=== PATIENT | male | born 1990 | race Caucasian/White ===

== ENCOUNTER 2018-02-15 09:22 | Emergency (ER) | payer SELFPAY | END 2018-02-15 12:41 | disposition home or self-care (01) | PROVIDERS: Emergency Provider Emergency Medicine; PCP Physician Assistant; Visit Provider Emergency Medicine | DX: K52.9 Noninfective gastroenteritis and colitis, unspecified (principal) | CPT/HCPCS: 74177; 80053; 83690; 85025; 96361; 96374; 96375; 96376; 99058; 99284; C9113; J1885; J2060; J2405; Q9967 ==

== ENCOUNTER 2018-04-01 11:00 | Emergency (ER) | payer SELFPAY ==
[2018-04-01 11:31] VITALS: BP 151/94; PULSE 80; RESP 14; TEMP 37; O2SAT 99
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
[2018-04-01 12:35] VITALS: BP 126/89; PULSE 90; RESP 16; O2SAT 100
== END 2018-04-01 12:41 | disposition home or self-care (01) ==
PROVIDERS: Emergency Provider Emergency Medicine; Family Provider Physician Assistant; PCP Physician Assistant
DX: M25.511 Pain in right shoulder (principal)
CPT/HCPCS: 99282

== ENCOUNTER 2018-04-28 11:55 | Emergency (ER) | payer SELFPAY ==
[2018-04-28 11:59] VITALS: BP 146/101; PULSE 81; RESP 20; TEMP 36.8; O2SAT 100
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
[2018-04-28 13:11] VITALS: BP 127/88; PULSE 73; RESP 16; O2SAT 98
== END 2018-04-28 13:23 | disposition home or self-care (01) ==
PROVIDERS: Emergency Provider Internal Medicine; Family Provider Physician Assistant; PCP Physician Assistant
DX: M75.41 Impingement syndrome of right shoulder (principal)
CPT/HCPCS: 99283

== ENCOUNTER 2019-10-07 11:15 | Emergency (ER) | payer SELFPAY ==
[2019-10-07 11:48] VITALS: BP 136/90; PULSE 86; RESP 18; TEMP 36.9; O2SAT 98; BMI 20.2
[2019-10-07 12:39] VITALS: BP 145/97; PULSE 88; RESP 18; TEMP 36.7; O2SAT 98
--- NOTE | 2019-10-07 12:49 | DI.RAD.S_ITS ---
PROCEDURE: XR LUMBAR SPINE 2-3V INDICATIONS: pain hx ca TECHNIQUE: 2 views of the lumbar spine were acquired. COMPARISON: [facility], CR, XR LUMBAR SPINE 2 OR 3VW, 10/13/2015, 8:53. FINDINGS: Bones: 5 eje-fhm-nhptthk vertebrae are present. There is a minimal leftward curvature of the lumbar spine. There is minimal retrolisthesis of the lumbar spine at T12-L1, L1-L2, L2-L3, L3-L4, L4-5, and L5-S1. Findings appear similar to the prior study. There is mild facet arthropathy in the lower lumbar spine. No vertebral body compression fractures. No suspicious bony lesions. Soft tissues: Overlying bowel gas pattern is normal. No suspicious soft tissue calcifications. Multiple surgical clips are redemonstrated within the abdomen and pelvis. IMPRESSION: 1. Minimal multilevel retrolisthesis throughout the lumbar spine. 2. Mild facet arthropathy at L5-S1. 3. No discrete suspicious osseous lesions. Dictated by: Mathew Green M.D. on 10/07/2019 at 12:28 Approved by: Mathew Green M.D. on 10/07/2019 at 12:40
--- NOTE | 2019-10-07 12:49 | DI.RAD.S_ITS ---
PROCEDURE: XR THORACIC SPINE 2V INDICATIONS: pain hx ca TECHNIQUE: 3 views of the thoracic spine were acquired. COMPARISON: [facility], CT, THORAX WITHOUT CONTRAST, 04/14/2016, 11:47. FINDINGS: Bones: No fractures or subluxation. There is a minimal rightward curvature of the upper thoracic spine. No suspicious bony lesions. 12 pairs of ribs are noted, and appear intact where visualized. Soft tissues: No paravertebral stripe thickening. IMPRESSION: 1. No definite fracture or subluxation. Dictated by: Mathew Green M.D. on 10/07/2019 at 12:40 Approved by: Mathew Green M.D. on 10/07/2019 at 12:42
[2019-10-07 12:58] LABS: Add Manual Diff / Slide Review NO; Basophils Absolute Auto 0 /uL (0-100); Basophils Percent Auto 0.4 % (0-2); Eosinophils Absolute Auto 100 /uL (0-450); Eosinophils Percent Auto 0.8 % (2-4); Hematocrit 45.1 % (41-53); Hemoglobin 15.7 g/dL (13.5-17.5); Lymphocytes Absolute Auto 1900 /uL (1100-4500); Lymphocytes Percent Auto 26.2 % (25-40); Mean Corpuscular HGB Conc 34.8 % (30-36); Mean Corpuscular Volume 86.4 fL (80-100); Monocytes Absolute Auto 300 /uL (0-900); Monocytes Percent Auto 4.7 % (3-14); Neutrophils Absolute Auto 4800 /uL (1500-7000); Neutrophils Percent Auto 67.9 % (50-75); Platelet Count 246 X10^3/uL (150-400); Red Blood Cell Count 5.22 X10^6/uL (4.5-5.9); Red Cell Distribution Width 13.3 % (11.6-14.8); White Blood Cell Count 7.1 X10^3/uL (4.5-11.0)
[2019-10-07] MEDS: ONDANSETRON 4 MG/2 ML INJ IV ×2 (13:06→14:13)
[2019-10-07] MEDS: SODIUM CHLORIDE 0.9% 1,000 ML 1000 ML IV (13:06)
[2019-10-07 13:11] LABS: Prothrombin Time 12.1 SECONDS (10.1-12.7)
[2019-10-07 13:14] LABS: PTT Partial Thromboplastin Tim 34 SECONDS (26.4-36.2)
[2019-10-07 13:17] LABS: Alanine Aminotransferase 38 IU/L (<50); Albumin 4.9 g/dL (3.5-5.0); Albumin Globulin Ratio 1.5 (1.0-2.8); Alkaline Phosphatase 73 U/L (38-126); Amylase 73 U/L (30-110); Aspartate Aminotransferase 38 IU/L (17-59); BUN Creatinine Ratio 7.5 (6-22); Bilirubin Total 0.8 mg/dL (0.2-1.3); Blood Urea Nitrogen 6 mg/dL (9-20); Calcium 9.5 mg/dL (8.4-10.2); Carbon Dioxide 26 mmol/L (22-32); Chloride 102 mmol/L (98-107); Estimated Glomerular Filt Rate > 60.0 mL/min (>60); Globulin 3.2 g/dL (1.7-4.1); Glucose 98 mg/dL (70-100); HEMOLYSIS < 15 (0-50); Lipase 131 U/L (23-300); Potassium 3.4 mmol/L (3.4-5.1); Sodium 141 mmol/L (137-145); Total Protein 8.1 g/dL (6.3-8.2)
[2019-10-07] MEDS: ACETAMINOPHEN 325 MG TABLET 975 MG PO (14:12)
[2019-10-07] MEDS: CYCLOBENZAPRINE 10 MG TABLET PO (14:12)
[2019-10-07] MEDS: IBUPROFEN 400 MG TABLET 800 MG PO (14:13)
[2019-10-07 14:27] VITALS: BP 125/73; PULSE 54; O2SAT 99
[2019-10-07] MEDS: hydrOXYzine pamoate 25 MG CAPSULE 50 MG PO (15:04)
[2019-10-07 15:30] VITALS: BP 116/68; PULSE 82; RESP 16; O2SAT 100
[2019-10-07 16:25] VITALS: BP 129/83; PULSE 64; O2SAT 98
--- NOTE | 2019-10-07 17:17 | CM.SWNOTE ---
professional services specialist Assessment: EMR reviewed: Patient is a 28 yr old male who came into the ED for joint and muscle pain that has been happening for over a month. Patient stated he has also lost over 35 lbs in less then a month and has not changed any eating habits or physical activity. Patient has a HX of prostate cancer but has been in remission for the last few years. Patient stated he did not do the required Follow up with [facility] after he went into remission. CM/RN was asked to meet with the patient by MIRNA Meneses to help with resources for follow up with oncology as well as to discuss patients anxiety. CM/RN met with patient at the bedside along with patients Sarah who is 7 months and explained CM/RN role. Patient was alert and oriented x3 during CM/RN visit. Patient states he is really concerned that his cancer has returned and [facility] has stated that the patient needs a new referral to be seen there to get scans done. Patient isn't able to see his PCP Dr. Johnson until November 01 2019. Patient is a [employer] and is not set up with [facility] [employer] or [facility]. CM/RN gave patient Oncology RYAN Locke's phone number [phone] to see if maybe she will be able to give patient a few more resources then CM/RN is able. CM/RN Did give patient information on applying for [place] and [place] health care through [employer] website. Patient stated understanding and appreciation for the resources. Cm/RN talked with patient at length about how his anxiety was doing? Patient stated he is just tired of being in pain and not being able to sleep. Patient stated his pain is getting worse every day and because of that his anxiety increases. Patient stated he use to take sertraline 150mg daily but stopped taking it about a year ago. Patient stated he didn't feel he needed it any more. Patient doesn't currently see anyone for anxiety or depression. CM/RN gave patient information about [facility] as well as their Crisis intervention line information and [facility] Crisis line information. Patient stated I have been struggling with PTSD from my time in the and stated he feels like it is just getting worse with the fears of possibly having cancer again with a son at home and a new baby on the way is just horrifying. P: CM/RN gave patient resources for Crisis line, [facility], [place] ebenifits to help with applying for [place] as well as [place] health benifits. CM/RN also gave patient Oncology MARILY Locke's phone number to talk with her about possible resources to help him with Cancer concerns. Tonya Diaz RN SHOW DOG TRAINER - Contract Implementation Analyst Assessment SHOW DOG TRAINER - Contract Implementation Analyst Assessment Start: 10/07/19 17:04 Freq: Status: Discharge Protocol: Document 10/07/19 17:04 HS (Rec: 10/07/19 17:16 HS [id number]) SHOW DOG TRAINER/Contract Implementation Analyst Assessment Time Spent with Patient Start date 10/07/19 Visit Start Time 15:30 End date 10/07/19 Visit End Time 17:10 Total time Care Management spent on 130min patient visit-in minutes Mental Health Screening Include Onset, Duration, Intensity Presenting Problem patient presented to the ED for joint and muscle pain as well as weight loss. Patient previously has had prostate cancer that has been in remission. Patient didn't do follow up care with [facility]. Patient is now concerned that his cancer has returned. Precipitating Event(s) Joint pain and weight loss Current Behavioral Health Provider(s) none Include Facility, Provider, Ph. # Psychiatric Hospitalizations (date(s)/ none location) Support System(s) Patient has a who is seven months and also has an 8 yr old son. 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
--- NOTE | 2019-10-07 21:13 | ED_ITS ---
HPI - Weakness <Michelle Meneses, BOTTOM STAINER-BC - Last Filed: 10/07/19 21:20> General Chief complaint: Weakness Stated complaint: bones hurting, weight loss, remission from cancer Time Seen by Provider: 10/07/19 11:27 Source: patient Mode of arrival: Ambulatory Limitations: no limitations History of Present Illness HPI Narrative: The patient is a 28-year-old male nonsmoker with history of testicular cancer who presents with a chief complaint of bone pain, weight loss in general malaise for the past several months. He states that he is having muscle aches and that his bones hurt. He states that this has been going on for at least 3 months and he has not followed up with primary care provider or his hematology oncology provider. He received treatment as [facility] states he is in remission for testicular cancer, though has not had his follow-up PET scans or evaluation. He states that since his is expecting a child in 2 months any or any has a toddler at home he is under increased stress. He states he has lost 30 lb, but is not sure over what duration. He states that he is having back pain. He states he has been using Tylenol and Motrin. He states that he was not able to sleep last night which is what made him come to the emergency department today. He states he has a scheduled appointment with PCP upcoming, but can no longer ?cope with life.He denies any thoughts of hurting himself or anybody else. He states that his anxiety is ?at a 10. Related Data Home Medications Medication Instructions Recorded Confirmed sertraline 150 mg PO QDAY #0 07/27/17 04/28/18 dexamethasone 1 dose PO DIRECTED 04/28/18 04/28/18 ibuprofen 1 - 3 tab PO PRN PRN 04/28/18 04/28/18 Previous Rx's Medication Instructions Recorded cyclobenzaprine 10 mg PO Q8H #20 tab 04/28/18 tramadol 50 mg PO Q6H PRN #10 tab 04/28/18 cyclobenzaprine 10 mg PO TID PRN #20 tab 10/07/19 hydroxyzine pamoate [Vistaril] 50 mg PO TID PRN #20 cap 10/07/19 Allergies Allergy/AdvReac Type Severity Reaction Status Date / Time barium sulfate Allergy Severe Gastrointestinal Verified 10/07/19 11:48 [BARIUM SULFATE] Upset levofloxacin [From LEVAQUIN] Allergy Unknown TENDONITIS Verified 10/07/19 11:48 indomethacin [INDOMETHACIN] AdvReac Severe MIGRAINE Verified 10/07/19 11:48 Review of Systems <TRIPP Cedeño - Last Filed: 10/07/19 21:20> Review of Systems Narrative: GENERAL: See HPI HEENT: Denies sinus pain, ear pain, sore throat, difficulty swallowing, dizziness. RESPIRATORY: Denies dyspnea, cough, wheezing, hemoptysis, sputum. CARDIOVASCULAR: Denies chest pain, palpitations, orthopnea, edema, GASTROINTESTINAL: Denies nausea, vomiting, abdominal pain, diarrhea, constipation, melena. : Denies dysuria, frequency, incontinence, hematuria, urinary retention. MUSCULOSKELETAL: See HPI SKIN: Denies rash, skin lesions, or other NEUROLOGIC: Denies weakness, headache, numbness, change in speech, confusion, seizures, incoordination. PSYCHIATRIC: See HPI 12 point review of systems is negative except for those stated above Patient History <TRIPP Cedeño - Last Filed: 10/07/19 21:20> Surgical History (Updated 02/28/18 @ 06:07 by Conversion Provider) Status post orchiectomy (08/22/13) Family History (Updated 03/16/16 @ 00:00 by Conversion Provider) Mother Hypertension Grandmother Age: 77 Kidney failure Social History Smoking Status: Never smoker Smoking Status: Never smoker alcohol intake frequency: 0-2 drinks per day Substance Use Type: does not use Exam <TRIPP Cedeño - Last Filed: 10/07/19 21:20> Narrative Exam Narrative: GENERAL: Thin male appears anxious HEAD: Atraumatic. Normocephalic. No temporal or scalp tenderness. EYES: Pupils equal round and reactive. Extraocular motions intact. No scleral icterus. No injection or drainage. ENT: Nose without bleeding, purulent drainage or septal hematoma. Throat without erythema, tonsillar hypertrophy or exudate. Uvula midline. Airway patent. NECK: Trachea midline. No JVD or lymphadenopathy. Supple, nontender, no meningeal signs. CARDIOVASCULAR: Regular rate and rhythm without murmurs, gallops, or rubs. RESPIRATORY: Clear to auscultation. Breath sounds equal bilaterally. No wheezes, rales, or rhonchi. No cough. No increased respiratory effort. No accessory muscle use. GASTROINTESTINAL: Abdomen soft, non-tender, nondistended. No hepato- splenomegaly, or palpable masses. No guarding. Active bowel sounds all 4 quadrants EXTREMITIES: No clubbing, cyanosis, or edema. No joint tenderness, effusion, or edema noted. BACK: Diffuse tenderness to thoracic and lumbar spine palpation with no palpable step-offs or deformities. No flank tenderness. NEURO: AOx3. Tangential. Pressured speech at times. SKIN: No rash or erythema on visible skin Initial Vital Signs Initial Vital Signs: Vital Signs Temperature 98.4 F 10/07/19 11:48 Pulse Rate 86 10/07/19 11:48 Respiratory Rate 18 10/07/19 11:48 Blood Pressure 136/90 10/07/19 11:48 Pulse Oximetry 98 10/07/19 11:48 <Ni Senior MD - Last Filed: 10/09/19 11:57> Initial Vital Signs Initial Vital Signs: Vital Signs Temperature 98.4 F 10/07/19 11:48 Pulse Rate 86 10/07/19 11:48 Respiratory Rate 18 10/07/19 11:48 Blood Pressure 136/90 10/07/19 11:48 Pulse Oximetry 98 10/07/19 11:48 Course <MIRNA Cedeño - Last Filed: 10/07/19 21:20> Orders Ordered: Discontinued Medications Acetaminophen (Tylenol) 975 mg PO NOW ONE Stop: 10/07/19 13:43 Last Admin: 10/07/19 14:12 Dose: 975 mg Documented by: J LUIS Cyclobenzaprine HCl (Flexeril) 10 mg PO NOW ONE Stop: 10/07/19 13:43 Last Admin: 10/07/19 14:12 Dose: 10 mg Documented by: J LUIS Hydroxyzine Pamoate (Vistaril) 50 mg PO NOW ONE Stop: 10/07/19 14:50 Last Admin: 10/07/19 15:04 Dose: 50 mg Documented by: J LUIS Sodium Chloride (Normal Saline 0.9%) 1,000 mls @ 1,000 mls/hr IV BOLUS ONE Stop: 10/07/19 13:48 Last Infusion: 10/07/19 14:15 Dose: 0 mls/hr Documented by: J LUIS Admin: 10/07/19 13:06 Dose: 1,000 mls/hr Documented by: JESSICA Ibuprofen (Advil) 800 mg PO NOW ONE Stop: 10/07/19 13:43 Last Admin: 10/07/19 14:13 Dose: 800 mg Documented by: J LUIS Ondansetron HCl (Zofran) 4 mg IV NOW ONE Stop: 10/07/19 12:50 Last Admin: 10/07/19 13:06 Dose: 4 mg Documented by: JESSICA Ondansetron HCl (Zofran) 4 mg IV NOW ONE Stop: 10/07/19 13:43 Last Admin: 10/07/19 14:13 Dose: 4 mg Documented by: J LUIS Vital Signs Vital signs: Vital Signs - 8 hr 10/07/19 14:27 10/07/19 15:30 10/07/19 16:25 Pulse Rate 54 L 82 64 Respiratory Rate 16 Blood Pressure [Right Arm] 125/73 116/68 129/83 Pulse Oximetry 99 100 98 <Ni Senior MD - Last Filed: 10/09/19 11:57> Orders Ordered: Discontinued Medications Acetaminophen (Tylenol) 975 mg PO NOW ONE Stop: 10/07/19 13:43 Last Admin: 10/07/19 14:12 Dose: 975 mg Documented by: J LUIS Cyclobenzaprine HCl (Flexeril) 10 mg PO NOW ONE Stop: 10/07/19 13:43 Last Admin: 10/07/19 14:12 Dose: 10 mg Documented by: J LUIS Hydroxyzine Pamoate (Vistaril) 50 mg PO NOW ONE Stop: 10/07/19 14:50 Last Admin: 10/07/19 15:04 Dose: 50 mg Documented by: J LUIS Sodium Chloride (Normal Saline 0.9%) 1,000 mls @ 1,000 mls/hr IV BOLUS ONE Stop: 10/07/19 13:48 Last Infusion: 10/07/19 14:15 Dose: 0 mls/hr Documented by: J LUIS Admin: 10/07/19 13:06 Dose: 1,000 mls/hr Documented by: JESSICA Ibuprofen (Advil) 800 mg PO NOW ONE Stop: 10/07/19 13:43 Last Admin: 10/07/19 14:13 Dose: 800 mg Documented by: J LUIS Ondansetron HCl (Zofran) 4 mg IV NOW ONE Stop: 10/07/19 12:50 Last Admin: 10/07/19 13:06 Dose: 4 mg Documented by: JESSICA Ondansetron HCl (Zofran) 4 mg IV NOW ONE Stop: 10/07/19 13:43 Last Admin: 10/07/19 14:13 Dose: 4 mg Documented by: J LUIS Vital Signs Vital signs: Vital Signs - 8 hr 10/07/19 14:27 10/07/19 15:30 10/07/19 16:25 Pulse Rate 54 L 82 64 Respiratory Rate 16 Blood Pressure [Right Arm] 125/73 116/68 129/83 Pulse Oximetry 99 100 98 MDM - Weakness <MIRNA Cedeño - Last Filed: 10/07/19 21:20> Lab Data Result diagrams: 10/07/19 12:50 10/07/19 12:50 Labs: Lab Results 10/07/19 10/07/19 10/07/19 Range/Units 12:50 12:50 12:50 WBC 7.1 (4.5-11.0) X10^3/uL RBC 5.22 (4.5-5.9) X10^6/uL Hgb 15.7 (13.5-17.5) g/dL Hct 45.1 (41-53) % MCV 86.4 (80-100) fL MCH 30.0 (26-34) PG MCHC 34.8 (30-36) % RDW 13.3 (11.6-14.8) % Plt Count 246 (150-400) X10^3/uL Neut % (Auto) 67.9 (50-75) % Lymph % (Auto) 26.2 (25-40) % [place] % (Auto) 4.7 (3-14) % Eos % (Auto) 0.8 L (2-4) % Baso % (Auto) 0.4 (0-2) % Neut # (Auto) 4800 (9223-2501) /uL Lymph # (Auto) 1900 (1188-1222) /uL [place] # (Auto) 300 (0-900) /uL Eos # (Auto) 100 (0-450) /uL Baso # (Auto) 0 (0-100) /uL PT 12.1 (10.1-12.7) SECONDS INR 1.0 (0.9-1.3) APTT 34 (26.4-36.2) SECONDS Sodium 141 (137-145) mmol/L Potassium 3.4 (3.4-5.1) mmol/L Chloride 102 (98-107) mmol/L Carbon Dioxide 26 (22-32) mmol/L BUN 6 L (9-20) mg/dL Creatinine 0.80 (0.66-1.25) mg/dL Estimated GFR > 60.0 (>60) mL/min BUN/Creatinine Ratio 7.5 (6-22) Glucose 98 (70-100) mg/dL Calcium 9.5 (8.4-10.2) mg/dL Magnesium 2.0 (1.6-2.3) mg/dL Total Bilirubin 0.8 (0.2-1.3) mg/dL AST 38 (17-59) IU/L ALT 38 (<50) IU/L Alkaline Phosphatase 73 (38-126) U/L Total Protein 8.1 (6.3-8.2) g/dL Albumin 4.9 (3.5-5.0) g/dL Globulin 3.2 (1.7-4.1) g/dL Albumin/Globulin Ratio 1.5 (1.0-2.8) Amylase 73 (30-110) U/L Lipase 131 (23-300) U/L Urine Dip Bedside Urine Glucose 100 mg/dl Bedside Urine Bilirubin + 1 Bedside Urine Ketone ++ 40 Urine Specific [place] 1.015 Bedside Urine Occult Blood - Negative Bedside Urine pH 6.5 Bedside Urine Protein + 30 Bedside Urine Urobilinogen 1+ 2mg Bedside Urine Nitrite - Negative Bedside Urine Leukocytes +/- 15 Esterase Imaging Data Thoracic spine x-ray: Radiologist's impression: [address] [address] XRay Report Signed Patient: Jarek Hernandez JMR#: [id number] : 1990Acct:[id number] Age/Sex: 28 / MDate of Service: 10/07/19 Loc: ED Accession Number: [id number] Procedure: XR thoracic spine 2V Ordering Provider: Broome,Michelle BOTTOM STAINER-BC PROCEDURE: XR THORACIC SPINE 2V INDICATIONS: pain hx ca TECHNIQUE: 3 views of the thoracic spine were acquired. COMPARISON: [facility], CT, THORAX WITHOUT CONTRAST, 04/14/2016, 11:47. FINDINGS: Bones: No fractures or subluxation. There is a minimal rightward curvature of the upper thoracic spine. No suspicious bony lesions. 12 pairs of ribs are noted, and appear intact where visualized. Soft tissues: No paravertebral stripe thickening. IMPRESSION: 1. No definite fracture or subluxation. Dictated by: Mathew Green M.D. on 10/07/2019 at 12:40 Approved by: Mathew Green M.D. on 10/07/2019 at 12:42 Lumbar spine x-ray: Radiologist's impression: [address] [address] XRay Report Signed Patient: Jarek Hernandez JMR#: [id number] : 1990Acct:[id number] Age/Sex: 28 / MDate of Service: 10/07/19 Loc: ED Accession Number: [id number] Procedure: XR lumbar spine 2-3V Ordering Provider: Michelle Meneses BOTTOM STAINER-BC PROCEDURE: XR LUMBAR SPINE 2-3V INDICATIONS: pain hx ca TECHNIQUE: 2 views of the lumbar spine were acquired. COMPARISON: [facility], , XR LUMBAR SPINE 2 OR 3VW, 10/13/2015, 8:53. FINDINGS: Bones: 5 [id number] vertebrae are present. There is a minimal leftward curvature of the lumbar spine. There is minimal retrolisthesis of the lumbar spine at T12-L1, L1-L2, L2-L3, L3-L4, L4-5, and L5-S1. Findings appear similar to the prior study. There is mild facet arthropathy in the lower lumbar spine. No vertebral body compression fractures. No suspicious bony lesions. Soft tissues: Overlying bowel gas pattern is normal. No suspicious soft tissue calcifications. Multiple surgical clips are redemonstrated within the abdomen and pelvis. IMPRESSION: 1. Minimal multilevel retrolisthesis throughout the lumbar spine. 2. Mild facet arthropathy at L5-S1. 3. No discrete suspicious osseous lesions. Dictated by: Mathew Green M.D. on 10/07/2019 at 12:28 Approved by: Mathew Green M.D. on 10/07/2019 at 12:40 MDM Narrative Medical decision making narrative: The patient is a 28-year-old male with history of testicular cancer presents with a chief complaint of multiple complaints over the past several months. It is difficult to ascertain an appropriate history, especially the timeline of events. Patient states that he started having weight loss issues, muscle aches and bone pain for the past several months. I did do basic lab work, obtain imaging of his back which came back with no acute findings. The patient responded well to Flexeril and Vistaril in the emergency department. Given his complains about psychosocial issues, his anxiety being added 10 etcetera I did ask our case management nurse Tonya to come see and evaluate the patient. I was especially concerned given his history and lack of follow-up. She was able to give him several contact numbers and help arrange follow-up especially given his scans. The patient did refer to PET scans, tumor markers etc.. A discussed that I could not order those in the emergency department and suggested that he follow-up with his previous oncology provider to see if they could order them at this location as we would not have to travel to [place]. The patient did request tramadol and other pain medication while in the emergency department and that I start him on benzodiazepines for anxiety. I discussed that I was not comfortable doing that in the emergency department and that he would need to be evaluated by an outpa tient provider for these. I discussed that these medications need to be monitored, that I could not prescribe tramadol or other narcotics without a clear indication. He states he wants to use them to sleep. Encouraged uses Vistaril. The patient become visibly agitated with aggressive speech at times. Nursing and Case Management had copious discussions with the patient. I discussed at length that he could come back to emergency department for any acute concerns. Patient has no questions or concerns upon discharge and states understanding of return precautions as well as follow-up care. <Ni Senior MD - Last Filed: 10/09/19 11:57> Lab Data Labs: Lab Results 10/07/19 10/07/19 10/07/19 Range/Units 12:50 12:50 12:50 WBC 7.1 (4.5-11.0) X10^3/uL RBC 5.22 (4.5-5.9) X10^6/uL Hgb 15.7 (13.5-17.5) g/dL Hct 45.1 (41-53) % MCV 86.4 (80-100) fL MCH 30.0 (26-34) PG MCHC 34.8 (30-36) % RDW 13.3 (11.6-14.8) % Plt Count 246 (150-400) X10^3/uL Neut % (Auto) 67.9 (50-75) % Lymph % (Auto) 26.2 (25-40) % [place] % (Auto) 4.7 (3-14) % Eos % (Auto) 0.8 L (2-4) % Baso % (Auto) 0.4 (0-2) % Neut # (Auto) 4800 (0827-4142) /uL Lymph # (Auto) 1900 (3110-3189) /uL [place] # (Auto) 300 (0-900) /uL Eos # (Auto) 100 (0-450) /uL Baso # (Auto) 0 (0-100) /uL PT 12.1 (10.1-12.7) SECONDS INR 1.0 (0.9-1.3) APTT 34 (26.4-36.2) SECONDS Sodium 141 (137-145) mmol/L Potassium 3.4 (3.4-5.1) mmol/L Chloride 102 (98-107) mmol/L Carbon Dioxide 26 (22-32) mmol/L BUN 6 L (9-20) mg/dL Creatinine 0.80 (0.66-1.25) mg/dL Estimated GFR > 60.0 (>60) mL/min BUN/Creatinine Ratio 7.5 (6-22) Glucose 98 (70-100) mg/dL Calcium 9.5 (8.4-10.2) mg/dL Magnesium 2.0 (1.6-2.3) mg/dL Total Bilirubin 0.8 (0.2-1.3) mg/dL AST 38 (17-59) IU/L ALT 38 (<50) IU/L Alkaline Phosphatase 73 (38-126) U/L Total Protein 8.1 (6.3-8.2) g/dL Albumin 4.9 (3.5-5.0) g/dL Globulin 3.2 (1.7-4.1) g/dL Albumin/Globulin Ratio 1.5 (1.0-2.8) Amylase 73 (30-110) U/L Lipase 131 (23-300) U/L Urine Dip Bedside Urine Glucose 100 mg/dl Bedside Urine Bilirubin + 1 Bedside Urine Ketone ++ 40 Urine Specific [place] 1.015 Bedside Urine Occult Blood - Negative Bedside Urine pH 6.5 Bedside Urine Protein + 30 Bedside Urine Urobilinogen 1+ 2mg Bedside Urine Nitrite - Negative Bedside Urine Leukocytes +/- 15 Esterase Discharge Plan Departure Patient Disposition: Home Clinical Impression: Muscle spasm, Anxiety Discharge Date/Time: 10/07/19 17:08 Instructions: Anxiety Disorders, Anxiety and Panic Attacks (Alternative Therapy), DI for Anxiety -- Adult, DI for Muscle Strain, DI for Muscle Spasm Activity Restrictions/Additional Instructions: Please follow-up with primary care provider as well as the resources provided to you by Tonya heredia case management nurse. It is important that you follow-up with your hematology/oncology providers for further evaluation and the scans that you are overdue for. Otherwise today, your imaging and lab work looked good. However this does not replace further evaluation or imaging. In the meantime, I have given you prescriptions for a muscle relaxer as well as an anxiety medication that you can take as needed. Please be aware that they can be sedating. Do not combine with alcohol or any other sedating agents. Please follow-up with primary care provider come back to the emergency department for any acute concerns such as chest pain, shortness of breath concern of heart attack or stroke etcetera Prescriptions: New cyclobenzaprine 10 mg tablet 10 mg PO TID PRN (Reason: muscle spasm) Qty: 20 RF: 0 hydroxyzine pamoate [Vistaril] 50 mg capsule 50 mg PO TID PRN (Reason: anxiety) Qty: 20 RF: 0 No Action sertraline 50 MG tablet 150 mg PO QDAY Qty: 0 RF: 0 dexamethasone 4 mg tablet 1 dose PO DIRECTED RF: 0 ibuprofen 200 mg Tablet 1 - 3 tab PO PRN PRN (Reason: Pain, Moderate) RF: 0 cyclobenzaprine 10 mg tablet 10 mg PO Q8H Qty: 20 RF: 0 tramadol 50 mg tablet 50 mg PO Q6H PRN (Reason: pain) Qty: 10 RF: 0 Referrals: Cheikh Garza DO [Primary Care Provider] -
--- NOTE | 2019-10-11 12:40 | ONC.MSW ---
Description: New Referral/Navigation Coordination Activity: Dr. Garza called this ADOBE ARCHITECT and was inquiring why pt has not yet been scheduled, and that he thought the referral had been forwarded by [facility]. ADOBE ARCHITECT called Jessica in referrals at [facility], she was unaware of the referral, and went online with [place] to pre-auth, only to discover that pt is not going to be eligible for this insurance until 10/31/19 ([place], [place]) He is currently self-pay, and reportedly has an outstanding balance with of $14,00, never made a payment in the last 3-years, and is chronically going through the ER for all of his care (uninsured). Kamila Luna in [employer] was the source of confirming the hx of his lack of payment and collections, and shared that his communication w/[facility] has had ongoing indiscrepancies re: coverage at various times. ADOBE ARCHITECT did go down to the [facility] lobby and speak to pt prior to finding out the above details of his account. He demanded to be seen in Oncology aneta, and states that Dr. Garza told me I only had a few weeks to get seen. He then went on to say that if we couldn't get him in, that he would show up at this primary care doctors office and demand a PET scan and blood tests that day, or go to several other specialists and piece-meal together what I need to find out. ADOBE ARCHITECT explained that procedures need to be pre-authorized, and that you can't just show up and demand a PET scan. ADOBE ARCHITECT did assure him that we would help by calling his insurance and determine if there are options for him to get September coverage, and that ADOBE ARCHITECT would call him back today with next steps. ADOBE ARCHITECT also explained that if it's his intent to come to Oncology, then to please not plan on going from provider to provider to try and get things he thinks he needs, but to allow us to order things properly in accordance with the Oncologist's recommendations. ADOBE ARCHITECT called pt's insurance and determined that he may have the option of calling [employer] and paying for an additional month (September) in order to get insurance coverage now, provided the phone number and explanation on his voicemail, and requested a return call from him to update this ADOBE ARCHITECT on what he finds out. Called Ashli Urrutia and updated her re: pt's erratic behavior (calling and speaking to multiple people in 2-clinics) and re: his lack of insurance and outstanding balance with [facility]. Left message for Dr. Garza and/or his nurse to call this ADOBE ARCHITECT to update re: situation and plan.
--- NOTE | 2019-10-15 13:52 | ONC.MSW ---
Description: T/C Navigation Activity: Called pt a second time, left message again inquiring about setting up an initial Oncology appt time. Requested return call to confirm.
--- NOTE | 2019-10-17 12:56 | ONC.MSW ---
Description: T/C from patient re: scheduling new consult appt. Activity: Pt called COUNCILPERSON and confirmed that he would like to move forward with getting the next urgent appt. available as close to 10/31/19 as possible. COUNCILPERSON assured him that we would work on this and call him back today with a time/date. Forwarded to scheduling, who will notify him of his new pt appt for 11/01/19 at 2:00pm.
== END 2019-10-07 17:08 | disposition home or self-care (01) ==
PROVIDERS: Emergency Provider Nurse Practitioner Family; PCP Family Medicine
DX: M62.838 Other muscle spasm (principal); F41.9 Anxiety disorder, unspecified
CPT/HCPCS: 36415; 72070; 72100; 80053; 81003; 82150; 83690; 83735; 85025; 85610; 85730; 96361; 96374; 96376; 99283; 99284; J2405

== ENCOUNTER → 2019-11-02 10:59 | Outpatient (CLI) | payer OTHER, SELFPAY ==
[2019-11-02 12:00] LABS: Lactate Dehydrogenase 420 U/L (313-618)
[2019-11-02 12:19] LABS: HCG Quantitative /Beta subunit < 2.39 mIU/mL (-2.40)
== END ==
PROVIDERS: PCP Family Medicine; Visit Provider Family Medicine
DX: R63.4 Abnormal weight loss (principal); Z85.47 Personal history of malignant neoplasm of testis
CPT/HCPCS: 36415; 82105; 83615; 84702

== ENCOUNTER → 2019-11-05 14:16 | Outpatient (CLI) | payer OTHER, SELFPAY ==
--- NOTE | 2019-11-05 14:19 | DI.CT.S_ITS ---
PROCEDURE: CT CHEST ABD PEL W CON INDICATIONS: SUDDEN WEIGHT LOSS, HX OF TESTICULAR CANCER TECHNIQUE: After the administration of oral and intravenous contrast, 5 mm thick sections acquired from the lung apices to the symphysis. 5 mm coronal and sagittal reformats were performed, with additional 7 mm coronal MIP reformats through the lungs. For radiation dose reduction, the following was used: automated exposure control, adjustment of mA and/or kV according to patient size. COMPARISON: [facility], CT, ABDOMEN/PELVIS WITH CONTRAST, 02/15/2018, 10:14. FINDINGS: Image quality: Excellent. CHEST: Lungs and pleura: No acute airspace opacities. No pleural effusions or pneumothorax. Central and peripheral airways appear patent and normal in caliber. Mediastinum: Heart size is normal. No pericardial effusion. No mediastinal or hilar adenopathy by size criteria. Thoracic aorta and central pulmonary arteries are normal in size. Esophagus is normal in caliber. No hiatal hernia. Chest wall: No axillary or supraclavicular adenopathy by size criteria. Thyroid gland is unremarkable. ABDOMEN: Solid organs: Liver is normal in size and enhancement. Gallbladder is normal in CT appearance. Biliary system is non dilated. Pancreas enhances normally. Spleen is normal in size and enhancement. No adrenal nodules. Kidneys demonstrate normal size and enhancement, without hydronephrosis. Peritoneum and bowel: Scant colonic diverticulosis. No acute inflammation. Bowel loops demonstrate normal wall thickness and caliber. No free fluid or air. Nodes and vessels: No retroperitoneal or mesenteric adenopathy by size criteria. Numerous periaortic retroperitoneal surgical clips. No suspicious mass lesions along the retroperitoneum. Aorta and inferior vena cava are normal in size. Miscellaneous: No ventral hernias. There are postoperative changes involving the midline ventral abdominal wall. PELVIS: Genitourinary: Bladder wall thickness is normal. Postoperative changes from previous orchiectomy. Miscellaneous: No inguinal hernias or adenopathy. No pelvic adenopathy. Bones: No suspicious bony lesions. No vertebral body compression fractures. IMPRESSION: CT chest, abdomen, and pelvis without acute abnormality or evidence for metastatic disease. Redemonstration of incidental colonic diverticulosis without acute inflammation. Dictated by: Salazar Gonzales M.D. on 11/05/2019 at 17:29 Approved by: Salazar Gonzales M.D. on 11/05/2019 at 17:40
== END ==
PROVIDERS: Family Provider Internal Medicine Hematology & Oncology; PCP Family Medicine; Visit Provider Family Medicine
DX: R63.4 Abnormal weight loss (principal); Z85.47 Personal history of malignant neoplasm of testis
CPT/HCPCS: 71260; 74177

== ENCOUNTER → 2020-02-07 10:08 | Outpatient (CLI) | payer OTHER, SELFPAY ==
--- NOTE | 2020-02-07 11:04 | DI.CT.S_ITS ---
PROCEDURE: CT CHEST ABD PEL W CON INDICATIONS: Weight loss, history of testicular cancer TECHNIQUE: After the administration of oral and intravenous contrast, 5 mm thick sections acquired from the lung apices to the symphysis. 5 mm coronal and sagittal reformats were performed, with additional 7 mm coronal MIP reformats through the lungs. For radiation dose reduction, the following was used: automated exposure control, adjustment of mA and/or kV according to patient size. COMPARISON: [facility], CT, ABDOMEN/PELVIS WITH CONTRAST, 05/15/2016, 17:06. [facility], CT, ABDOMEN/PELVIS WITH CONTRAST, 04/04/2017, 19:51. [facility], CT, ABDOMEN/PELVIS WITH CONTRAST, 02/15/2018, 10:14. [facility], CT, CT CHEST ABD PEL W CON, 11/05/2019, 15:34. FINDINGS: Image quality: Excellent. CHEST: Lungs and pleura: Small subtle groundglass opacities are present in the right upper lobe, not seen on the last exam. No pleural effusions or pneumothorax. Central and peripheral airways appear patent and normal in caliber. Mediastinum: Heart size is normal. No pericardial effusion. No mediastinal or hilar adenopathy by size criteria. Thoracic aorta and central pulmonary arteries are normal in size. Esophagus is normal in caliber. No hiatal hernia. Chest wall: No axillary or supraclavicular adenopathy by size criteria. Stable small left axillary lymph nodes. Thyroid gland is normal. ABDOMEN: Solid organs: Liver is normal in size and enhancement. Gallbladder is normal. Biliary system is non dilated. Pancreas enhances normally. Spleen is normal in size and enhancement. No adrenal nodules. Kidneys demonstrate normal size and enhancement, without hydronephrosis. Peritoneum and bowel: Moderate amount of stool in colon. Bowel loops demonstrate normal wall thickness and caliber. No free fluid or air. Nodes and vessels: There is a cluster of left para-aortic lymph nodes just below the left renal vein. The conglomerate christiana tissue measures 1.1 x 2.0 cm, which appears unchanged in size compared to the last exam. Aorta and inferior vena cava are normal in size. Miscellaneous: No ventral hernias. PELVIS: Genitourinary: Bladder wall thickness is normal. A fluid-filled structure at the base of the penis is probably a penile implant. Miscellaneous: No inguinal hernias or adenopathy. Bones: No suspicious bony lesions. No vertebral body compression fractures. IMPRESSION: 1. Stable clustered left paraaortic lymph nodes. 2. Small subtle groundglass opacities are present in the right upper lobe, most likely infectious or inflammatory in etiology. Recommend followup CT to ensure resolution. Dictated by: Monet Luna M.D. on 02/07/2020 at 11:39 Approved by: Monet Luna M.D. on 02/07/2020 at 13:53
== END ==
LOC: CT 10:09
PROVIDERS: Family Provider Internal Medicine Hematology & Oncology; PCP Family Medicine; Referring Provider Internal Medicine Hematology & Oncology; Visit Provider Internal Medicine Hematology & Oncology
DX: R63.4 Abnormal weight loss (principal); Z85.47 Personal history of malignant neoplasm of testis
CPT/HCPCS: 71260; 74177; Q9967

== ENCOUNTER → 2020-05-06 14:21 | Outpatient (CLI) | payer OTHER, SELFPAY ==
[2020-05-07 20:33] LABS: COVID19 Sendout Not Detected (Not Detect)
== END ==
PROVIDERS: Family Provider Internal Medicine Hematology & Oncology; PCP Family Medicine; Visit Provider Physician Assistant
DX: R05 Cough (principal)
CPT/HCPCS: 87635

== ENCOUNTER → 2020-07-17 07:09 | Outpatient (CLI) | payer OTHER, SELFPAY ==
--- NOTE | 2020-07-17 07:10 | DI.MRI.S_ITS ---
PROCEDURE: MR HEAD/BRAIN WO CON INDICATIONS: headache, testicular cancer TECHNIQUE: Noncontrast axial T1 spin echo, axial T2 fast spin echo, sagittal and axial FLAIR, coronal T2 fast spin echo, axial gradient echo, axial diffusion and ADC through the brain. COMPARISON: , CT, HEAD WITHOUT CONTRAST, 07/27/2017, 14:16. FINDINGS: Image quality: Excellent. CSF Spaces: Basal cisterns are patent. No extra-axial fluid collections. Ventricles are normal in size and shape. Brain: No intracranial masses or hemorrhage. Pearson/white matter interface is normal. Brainstem appears normal. Diffusion-weighted images demonstrate no acute ischemic insult. No chronic ischemic insults. Normal intravascular flow voids are present. Skull and face: Calvarium has normal marrow signal. Orbits appear normal. Sinuses: There is mild mucosal thickening within the bilateral sphenoid and ethmoid air cells, as well as the bilateral frontal sinuses. Mild bilateral maxillary sinus mucosal thickening. Right maxillary sinus retention cyst. Opacification of the left ostiomeatal unit. IMPRESSION: 1. No acute process. No recent infarct. 2. Negative evaluation of the intracranial structures. 3. Sinus disease. Dictated by: Chata Leos M.D. on 07/17/2020 at 8:46 Approved by: Chata Leos M.D. on 07/17/2020 at 8:48
== END ==
PROVIDERS: Family Provider Internal Medicine Hematology & Oncology; PCP Family Medicine; Referring Provider Family Medicine; Visit Provider Internal Medicine Hematology & Oncology
DX: R51 Headache (principal); K62.5 Hemorrhage of anus and rectum; R63.4 Abnormal weight loss; J32.9 Chronic sinusitis, unspecified; Z85.47 Personal history of malignant neoplasm of testis
CPT/HCPCS: 70551

== ENCOUNTER 2020-07-29 16:18 | Emergency (ER) | payer OTHER, SELFPAY ==
[2020-07-29 16:21] VITALS: BP 140/86; PULSE 61; RESP 20; TEMP 36.6; O2SAT 100
[2020-07-29 17:00] LABS: Add Manual Diff / Slide Review NO; Basophils Absolute Auto 0 /uL (0-100); Basophils Percent Auto 0.5 % (0-2); Eosinophils Absolute Auto 0 /uL (0-450); Eosinophils Percent Auto 0.2 % (2-4); Hematocrit 44.1 % (41-53); Hemoglobin 15.3 g/dL (13.5-17.5); Lymphocytes Absolute Auto 1500 /uL (1100-4500); Lymphocytes Percent Auto 22.3 % (25-40); Mean Corpuscular HGB Conc 34.7 % (30-36); Mean Corpuscular Hemoglobin 29.4 PG (26-34); Mean Corpuscular Volume 84.7 fL (80-100); Monocytes Absolute Auto 300 /uL (0-900); Neutrophils Absolute Auto 4900 /uL (1500-7000); Platelet Count 289 X10^3/uL (150-400); Red Cell Distribution Width 13.2 % (11.6-14.8); White Blood Cell Count 6.7 X10^3/uL (4.5-11.0)
[2020-07-29] MEDS: ONDANSETRON 4 MG/2 ML INJ IV (17:09)
[2020-07-29] MEDS: LORazepam 2 MG/ML INJ 1 MG IV ×2 (17:09→18:15)
[2020-07-29] MEDS: SODIUM CHLORIDE 0.9% 1,000 ML 1000 ML IV (17:09)
--- NOTE | 2020-07-29 17:15 | PC.NURSE ---
geriatric social work professor Adolph at bedside with patient and
[2020-07-29 17:19] LABS: Bacteria Urine None Seen; RBC Urine None Seen (0-5/HPF); WBC Urine None Seen (0-5/HPF)
[2020-07-29 17:23] LABS: Appearance Urine UA CLEAR; Bilirubin Urine UA NEGATIVE (NEGATIVE); Color Urine UA YELLOW; Glucose Urine UA NEGATIVE (Negative); Ketones Urine UA 1+ (NEGATIVE); Leukocyte Esterase Urine UA NEGATIVE (NEGATIVE); Nitrite Urine UA NEGATIVE (Negative); Occult Blood Urine UA NEGATIVE (Negative); Protein Urine UA NEGATIVE (Negative); Urobilinogen Urine UA 0.2 E.U./dL (0.2)
[2020-07-29 17:26] LABS: UR Morphine/Opiate cutoff 300 Negative (Negative); Ur Creatinine Normal (Normal); Ur Specific Gravity Normal (Normal); Urine Amphetamines Negative (Negative); Urine Cocaine Negative (Negative); Urine MDMA Negative (Negative); Urine Methamphetamines Negative (Negative); Urine Phencyclidine Negative (Negative); Urine Tetrahydrocannabinol Positive (Negative); Urine pH Normal (Normal)
[2020-07-29 17:27] LABS: Urine Barbiturates Negative (Negative); Urine Benzodiazepines Negative (Negative); Urine Methadone Negative (Negative); Urine Oxycodone Negative (Negative); Urine Tricyclic Antidepressant Negative (Negative)
[2020-07-29 17:29] LABS: Acetaminophen < 10 ug/mL (10-30); Alanine Aminotransferase 15 IU/L (<50); Albumin 5.4 g/dL (3.5-5.0); Albumin Globulin Ratio 1.4 (1.0-2.8); Alkaline Phosphatase 64 U/L (38-126); Aspartate Aminotransferase 24 IU/L (17-59); BUN Creatinine Ratio 6.3 (6-22); Bilirubin Total 0.8 mg/dL (0.2-1.3); Blood Urea Nitrogen 5 mg/dL (9-20); Calcium 10.4 mg/dL (8.4-10.2); Carbon Dioxide 30 mmol/L (22-32); Chloride 101 mmol/L (98-107); Estimated Glomerular Filt Rate > 60.0 mL/min (>60); Ethanol (ETOH) < 10 mg/dL; Globulin 3.8 g/dL (1.7-4.1); Glucose 104 mg/dL (70-100); HEMOLYSIS < 15 (0-50); Potassium 3.8 mmol/L (3.4-5.1); Salicylate < 1.0 mg/dL (<20); Sodium 142 mmol/L (137-145); Total Protein 9.2 g/dL (6.3-8.2)
[2020-07-29 17:31] LABS: Culture Indicated Urine Cult Not Indicated; Mucus Urine 1+ (Negative); Renal Epithelial Cells Urine 0-1/HPF (0-1/HPF); Squamous Epithelial Cell Urine 0-1 /HPF (0-5/HPF); Transitional Epi Cells Urine 0-1/HPF (0-5/HPF)
[2020-07-29 17:45] LABS: Free T4, Direct Thyroxine 1.49 ng/dL (0.78-2.19)
[2020-07-29 17:59] LABS: Thyroid Stimulating Hormone 0.721 uIU/mL (0.47-4.68)
--- NOTE | 2020-07-29 18:01 | ED_ITS ---
HPI - Psych General Chief Complaint: Psychiatric Symptoms Stated Complaint: feels suicidal Time Seen by Provider: 07/29/20 17:52 Source: patient Mode of arrival: Ambulatory Limitations: no limitations History of Present Illness HPI Narrative: 29-year-old male here in the emergency department with his . Arrived by private vehicle under his own accord. Has a diagnosis of PTSD. Does not see a mental health provider. Does not see a counselor. Has managed by his primary provider. Has been on multiple medications in the past. 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 He states that last evening he had a very vivid ?night terrors? he says that it was the worst dream that he has ever had. He states it was very vivid. Woke up this morning having an intense feeling of guilt secondary to the events that he was involved with during his service. He states that he does not feel safe at home. He states he is concerned he is going to ?blackout? and ?do something that I can take back ?he has not tried to hurt himself. Has never been admitted to the hospital in the past. Currently he feels like the thoughts of guilt have subsided somewhat however he still states that he does not feel safe. He states that he is still having the PTSD thoughts. Denies any drugs or alcohol. Related Data Previous Rx's Medication Instructions Recorded naloxone 4 mg/actuation nasal spray 4 mg NASAL Q2M PRN #2 each 05/06/20 sertraline 50 mg tablet 50 mg PO DAILY #90 tab 05/30/20 alprazolam 0.5 mg tablet 0.5 mg PO BID PRN #60 tab 06/24/20 fentanyl 50 mcg/hr transdermal 1 patch TRANSDERMAL Q72H #10 each 06/24/20 patch oxycodone 10 mg tablet 10 mg PO Q6H PRN #120 tab 06/24/20 Allergies Allergy/AdvReac Type Severity Reaction Status Date / Time barium sulfate Allergy Severe Gastrointestinal Verified 06/24/20 13:59 [BARIUM SULFATE] Upset levofloxacin [From LEVAQUIN] Allergy Unknown TENDONITIS Verified 06/24/20 13:59 indomethacin [INDOMETHACIN] AdvReac Severe MIGRAINE Verified 06/24/20 13:59 hydroxyzine AdvReac Verified 06/24/20 13:59 tramadol AdvReac Verified 08/25/20 13:59 Review of Systems Constitutional Constitutional: Denies fever(s) and Denies headache(s) Eyes Eyes: Denies change in vision ENT Ears, Nose, Mouth, and Throat: Denies headache(s) Cardiovascular Cardiovascular: Denies chest pain and Denies dyspnea Respiratory Respiratory: Denies dyspnea Gastrointestinal Gastrointestinal: Reports abdominal pain (This is not new), Denies nausea and Denies vomiting Genitourinary Genitourinary: Denies dysuria Genitourinary: Denies dysuria Musculoskeletal Musculoskeletal: Denies arthralgias and Denies myalgias Integumentary/Breasts Skin/Breast: Denies rash Neurologic Neurologic: Denies behavioral changes and Denies headache(s) Psychiatric Psychiatric: Denies behavioral changes Hematologic/Lymphatic Hematologic/Lymphatic: Denies easy bleeding and Denies easy bruising Allergic/Immunologic Allergic/Immunologic: Denies urticaria Patient History Medical History Anxiety disorder due to medical condition (Acute) History of testicular cancer (Acute) Inadequate pain control (Acute) Low back pain (Acute) Penile mass (Acute) Pneumonia (Acute) Psoas muscle strain (Acute) Segmental and somatic dysfunction of abdomen and other regions (Acute) Sinusitis (Acute) Unexplained weight loss (Acute) Surgical History Status post orchiectomy (08/22/13) Family History (Updated 03/16/16 @ 00:00 by Conversion Provider) Mother Hypertension Grandmother Age: 78 Kidney failure Social History Smoking Status: Current every day smoker Smoking Status: Current every day smoker alcohol intake frequency: 0-2 drinks per day Substance Use Type: does not use Exam Initial Vital Signs Initial Vital Signs: Vital Signs Temperature 97.9 F 07/29/20 16:21 Pulse Rate 61 07/29/20 16:21 Respiratory Rate 20 07/29/20 16:21 Blood Pressure 140/86 07/29/20 16:21 Pulse Oximetry 100 07/29/20 16:21 Const General: cooperative, comfortable and well developed Limitations: mental status not altered HENMT Head: normal to inspection and normocephalic Resp Effort & Inspection: normal respiratory effort Auscultation: clear to auscultation bilaterally Cardio Rate: regular rate Rhythm: regular rhythm GI Inspection: non-distended Palpation: soft Skin Lesions: no lesions Rashes: no rashes Neuro General: patient alert, patient awake and patient oriented x3 Cognition: normal cognition Speech: speech normal Extrem General: normal to inspection and capillary refill normal Psych Appearance: grossly normal and well kempt Scores GCS Winnie coma scale eye opening: Spontaneous [place] coma scale verbal response: Orientated [place] coma scale motor response: Obey commands Winnie coma scale total score: 15 Course Orders Ordered: ED Orders 07/29/20 16:33 Consult to [facility] [place] Seconds Inspector Stat 07/29/20 16:50 Acetaminophen Stat Complete Blood Count AUTO DIFF Stat Comprehensive Metabolic Panel Stat Ethanol (ETOH) Stat Free T4, Direct Thyroxine Stat Salicylate Stat Thyroid Stimulating Hormone Stat 07/29/20 17:00 Urinalysis and Microscopic Stat Urine Drug Screen, Rapid Stat 07/29/20 18:55 COVID19 -ED/INPAT/OR/L&D Stat Discontinued Medications Acetaminophen (Tylenol) 650 mg PO NOW ONE Stop: 07/29/20 21:39 Last Admin: 07/29/20 21:52 Dose: 650 mg Documented by: PB Sodium Chloride (Normal Saline 0.9%) 1,000 mls @ 1,000 mls/hr IV BOLUS ONE Stop: 07/29/20 18:03 Last Infusion: 07/29/20 18:20 Dose: 0 mls/hr Documented by: Admin: 07/29/20 17:09 Dose: 1,000 mls/hr Documented by: LEI Loperamide HCl (Imodium) 2 mg PO NOW ONE Stop: 07/29/20 20:14 Last Admin: 07/29/20 20:22 Dose: 2 mg Documented by: QAMAR Lorazepam (Ativan) 1 mg IV NOW ONE Stop: 07/29/20 17:04 Last Admin: 07/29/20 17:09 Dose: 1 mg Documented by: LEI Lorazepam (Ativan) 1 mg IV NOW ONE Stop: 07/29/20 18:02 Last Admin: 07/29/20 18:15 Dose: 1 mg Documented by: PB Lorazepam (Ativan) 1 mg PO NOW ONE Stop: 07/29/20 22:08 Last Admin: 07/29/20 22:27 Dose: 1 mg Documented by: PB Nicotine (Nicoderm) 14 mg TOP NOW ONE Stop: 07/29/20 18:25 Last Admin: 07/29/20 18:52 Dose: 14 mg Documented by: PB Ondansetron HCl (Zofran) 4 mg IV NOW ONE Stop: 07/29/20 16:59 Last Admin: 07/29/20 17:09 Dose: 4 mg Documented by: LEI Tramadol HCl (Ultram) 50 mg PO NOW ONE Stop: 07/30/20 00:10 Last Admin: 07/30/20 00:13 Dose: 50 mg Documented by: CECILIA Vital Signs Vital signs: Vital Signs - 8 hr 07/29/20 21:30 07/29/20 21:45 Temperature 98.6 F Pulse Rate 74 88 Respiratory Rate 15 16 Blood Pressure 123/79 123/79 Pulse Oximetry 100 97 MDM - Psych Lab Data Attestation: I reviewed the patient's lab results. Result diagrams: 07/29/20 16:50 07/29/20 16:50 Labs: Lab Results 07/29/20 07/29/20 07/29/20 Range/Units 16:50 16:50 16:50 WBC 6.7 (4.5-11.0) X10^3/uL RBC 5.20 (4.5-5.9) X10^6/uL Hgb 15.3 (13.5-17.5) g/dL Hct 44.1 (41-53) % MCV 84.7 (80-100) fL MCH 29.4 (26-34) PG MCHC 34.7 (30-36) % RDW 13.2 (11.6-14.8) % Plt Count 289 (150-400) X10^3/uL Neut % (Auto) 73.0 (50-75) % Lymph % (Auto) 22.3 L (25-40) % [place] % (Auto) 4.0 (3-14) % Eos % (Auto) 0.2 L (2-4) % Baso % (Auto) 0.5 (0-2) % Neut # (Auto) 4900 (6097-0045) /uL Lymph # (Auto) 1500 (9145-1780) /uL [place] # (Auto) 300 (0-900) /uL Eos # (Auto) 0 (0-450) /uL Baso # (Auto) 0 (0-100) /uL Sodium 142 (137-145) mmol/L Potassium 3.8 (3.4-5.1) mmol/L Chloride 101 (98-107) mmol/L Carbon Dioxide 30 (22-32) mmol/L BUN 5 L (9-20) mg/dL Creatinine 0.79 (0.66-1.25) mg/dL Estimated GFR > 60.0 (>60) mL/min BUN/Creatinine Ratio 6.3 (6-22) Glucose 104 H (70-100) mg/dL Calcium 10.4 H (8.4-10.2) mg/dL Total Bilirubin 0.8 (0.2-1.3) mg/dL AST 24 (17-59) IU/L ALT 15 (<50) IU/L Alkaline Phosphatase 64 (38-126) U/L Total Protein 9.2 H (6.3-8.2) g/dL Albumin 5.4 H (3.5-5.0) g/dL Globulin 3.8 (1.7-4.1) g/dL Albumin/Globulin Ratio 1.4 (1.0-2.8) TSH 0.721 (0.47-4.68) uIU/mL Free T4 1.49 (0.78-2.19) ng/dL Urine Color Urine Appearance Urine pH (4.5-8.0) Ur Specific [place] (1.000-1.035) Urine Protein (Negative) Urine Glucose (UA) (Negative) g/dL Urine Ketones (NEGATIVE) Urine Occult Blood (Negative) Urine Nitrate (Negative) Urine Bilirubin (NEGATIVE) Urine Urobilinogen (0.2) E.U./dL Ur Leukocyte Esterase (NEGATIVE) Urine RBC (0-5/HPF) Urine WBC (0-5/HPF) Ur Squamous Epith Cells (0-5/HPF) Ur Transition Epith Cell (0-5/HPF) Ur Renal Epithelial Cell (0-1/HPF) Urine Bacteria (None) Urine Mucus (Negative) Ur Culture Indicated? Salicylates < 1.0 (<20) mg/dL U Opiates 300ng/mL cut (Negative) Ur Oxycodone Screen (Negative) Urine Methadone Screen (Negative) Acetaminophen < 10 L (10-30) ug/mL Ur Barbiturates Screen (Negative) U Tricyclic Antidepress (Negative) Ur Phencyclidine Scrn (Negative) Ur Amphetamines Screen (Negative) U Methamphetamines Scrn (Negative) Ur MDMA Scrn (Ecstasy) (Negative) U Benzodiazepines Scrn (Negative) Urine Cocaine Screen (Negative) U Marijuana (THC) Screen (Negative) Ethyl Alcohol < 10 ( - 10) mg/dL COVID-19 PCR (Negative) 07/29/20 07/29/20 07/29/20 Range/Units 17:00 17:00 18:55 WBC (4.5-11.0) X10^3/uL RBC (4.5-5.9) X10^6/uL Hgb (13.5-17.5) g/dL Hct (41-53) % MCV (80-100) fL MCH (26-34) PG MCHC (30-36) % RDW (11.6-14.8) % Plt Count (150-400) X10^3/uL Neut % (Auto) (50-75) % Lymph % (Auto) (25-40) % [place] % (Auto) (3-14) % Eos % (Auto) (2-4) % Baso % (Auto) (0-2) % Neut # (Auto) (8021-6739) /uL Lymph # (Auto) (8821-6428) /uL [place] # (Auto) (0-900) /uL Eos # (Auto) (0-450) /uL Baso # (Auto) (0-100) /uL Sodium (137-145) mmol/L Potassium (3.4-5.1) mmol/L Chloride (98-107) mmol/L Carbon Dioxide (22-32) mmol/L BUN (9-20) mg/dL Creatinine (0.66-1.25) mg/dL Estimated GFR (>60) mL/min BUN/Creatinine Ratio (6-22) Glucose (70-100) mg/dL Calcium (8.4-10.2) mg/dL Total Bilirubin (0.2-1.3) mg/dL AST (17-59) IU/L ALT (<50) IU/L Alkaline Phosphatase (38-126) U/L Total Protein (6.3-8.2) g/dL Albumin (3.5-5.0) g/dL Globulin (1.7-4.1) g/dL Albumin/Globulin Ratio (1.0-2.8) TSH (0.47-4.68) uIU/mL Free T4 (0.78-2.19) ng/dL Urine Color Yellow Urine Appearance Clear Urine pH 6.0 (4.5-8.0) Ur Specific [place] 1.010 (1.000-1.035) Urine Protein Negative (Negative) Urine Glucose (UA) Negative (Negative) g/dL Urine Ketones 1+ H (NEGATIVE) Urine Occult Blood Negative (Negative) Urine Nitrate Negative (Negative) Urine Bilirubin Negative (NEGATIVE) Urine Urobilinogen 0.2 (0.2) E.U./dL Ur Leukocyte Esterase Negative (NEGATIVE) Urine RBC None seen (0-5/HPF) Urine WBC None seen (0-5/HPF) Ur Squamous Epith Cells 0-1 /hpf (0-5/HPF) Ur Transition Epith Cell 0-1/hpf (0-5/HPF) Ur Renal Epithelial Cell 0-1/hpf (0-1/HPF) Urine Bacteria None seen (None) Urine Mucus 1+ H (Negative) Ur Culture Indicated? Cult not indicated Salicylates (<20) mg/dL U Opiates 300ng/mL cut Negative (Negative) Ur Oxycodone Screen Negative (Negative) Urine Methadone Screen Negative (Negative) Acetaminophen (10-30) ug/mL Ur Barbiturates Screen Negative (Negative) U Tricyclic Antidepress Negative (Negative) Ur Phencyclidine Scrn Negative (Negative) Ur Amphetamines Screen Negative (Negative) U Methamphetamines Scrn Negative (Negative) Ur MDMA Scrn (Ecstasy) Negative (Negative) U Benzodiazepines Scrn Negative (Negative) Urine Cocaine Screen Negative (Negative) U Marijuana (THC) Screen Positive H (Negative) Ethyl Alcohol ( - 10) mg/dL COVID-19 PCR Negative (Negative) MDM Narrative Medical decision making narrative: Patient is medically cleared. He is here voluntarily. Has been evaluated by social Work. He is asking for admission to the hospital secondary to the thoughts that he is having and also the feelings of being unsafe at home. web worker working on finding placement. Patient was evaluated by social Work. Social Work was able to locate a facility willing to accept the patient at [place]. Accepting provider was Dee morgan. Patient has remained stable throughout his ED stay. He remains voluntary. Is stable for transport. Discharge Plan Departure Patient Disposition: Xfer Psychiatric Hosp Clinical Impression: Suicidal ideation, Post traumatic stress disorder Referrals: Cheikh Garza DO [Primary Care Provider] -
--- NOTE | 2020-07-29 18:18 | CM.SWNOTE ---
KNOWLEDGE ANALYST assessment KNOWLEDGE ANALYST - Hospice Rn Assessment KNOWLEDGE ANALYST - Hospice Rn Assessment Start: 07/29/20 17:53 Freq: Status: Active Protocol: Document 07/29/20 17:54 MICHAEL (Rec: 07/29/20 18:18 MICHAEL [id number]) KNOWLEDGE ANALYST/Hospice Rn Assessment Time Spent with Patient Start date 07/29/20 Visit Start Time 16:55 End date 07/29/20 Visit End Time 17:50 Total time Care Management spent on 55 patient visit-in minutes Mental Health Screening Include Onset, Duration, Intensity Presenting Problem Patient presents to ED for suicidal thoughts. Patient reports he is feeling he does not deserve to be alive and is feeling like I don't have control. Patient reports he has been feeling more on edge and getting angry more easily than I should be. Patient reports worry that he is going to snap, and states he does not feel safe to be alone. Precipitating Event(s) Patient was taken off of all medication except for Zoloft 1 week prior. Patient has hx of cancer, other physical health concerns . my body's all Fed up. Patient was in for 12 years, and was discharged 1 year prior due to physical injuries. Patient experienced significant trauma due to combat during during time in . Patient Strengths Patient is insightful with regards to his mental health, and recognizes when to remove himself from a situation in order to avoid triggers. Current Behavioral Health Provider(s) None. Include Facility, Provider, Ph. # Psych. Hx Mental Health and Chemical Patient has significant post- Dependency traumatic stress resulting from his time in . 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 Patient reports flashbacks, blackouts, night terrors, and anxiety resulting from this.Patient explains he feels some survivor's guilt as well, and has been delaying filling out his [facility] paperwork because of this. Patient reports no hx of CATHY/ alcohol use disorders; does endorse use of marijuana via vape pen to help with sleep. Family Hx of Behavioral Abuse None reported Psychiatric Hospitalizations (date(s)/ None reported. location) Psychosocial information & Support Patient is a 29 y/o Systems father of two who lives at home with his . Patient got out of the roughly 1 year prior, and states he has had difficulty with the transition, and has not fully acepted that he is not in any more. Patient feels supported by family, and patient's spouse is at bedside during assessment with patient consent. 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 Legal Concerns Legal Matters - Outstanding Issues None. Mental Status Orientation (Person/Place/Time) Oriented x3 Stated Mood I shouldn't feel this way. Affect (Congruent with Mood?) dysphoric, anxious, normal range, stable, congruent with mood. Thought Content - Specify/Describe Patient endorses experience of Obsessions, Delusions, Hallucinations multi-sensory flashbacks and night terrors. With the exception of aforementioned flashbacks, patient reports anodic treater of hallucinations, delusions, or obsessions. Thought Processes (Ctsvdyo-Mhulnoik-Xexb Logical-Goal Directed Rtmcohcd-Aojyafng-Zxgfriguse- Eijvtoyrxhasgn-Syrxbda-Uhcfxejkeqkc- Thought Blocking) Speech (Rnsfxk-Lbcv-Blhtcsg-Rapid-Soft- Normal Loud-Pressured) Motor (Ttoils-Yultoxogg-Riad-Other) Excessive- patient was shaking legs and states this is due to anxiety. Insight (Ogel-Okrq-Txzt/Limited) Good Judgement (Esaq-Vhni-Punb/Limited) Good Impulse Control (Adequate-Impaired) Adequate Memory (Vdfflcmgd-Gftchx-Ncpfhy, Recent/Immediate intact. Impaired-Intact) Remote appeared functionally intact but not formally assessed. Concentration (Intact-Impaired) Intact Attention (Intact-Impaired) Intact Behavior (Appropriate-Inappropriate) Appropriate Risk Assessment Suicidal Ideation (Plan) Yes Homicidal Ideation (Plan) No Comment Patient denies HI. Patient endorses SI. Patient denies having a formal plan, but states he does not feel that he will be safe if he is alone with his thoughts while his is at work this evening. Patient states he has been feeling close to snapping for the past week and does not want to do something I can't take back. Patient reports an escalation in his flashbacks and night terrors over past week. Intervention Intervention KNOWLEDGE ANALYST meets with patient and . KNOWLEDGE ANALYST and patient discuss patient hx of trauma and current suicidal thoughts. Patient also endorses increased agitation and feeling as though he might snap, and states desire to avoid this. Patient states desire to feel better. Patient and KNOWLEDGE ANALYST discuss inpatient treatment, and patient agreeable to voluntary treatment. KNOWLEDGE ANALYST updates Dr. Penn. Plan RA Plan KNOWLEDGE ANALYST will begin seeking inpatient bed for behavioral health for patient. RYAN Scott
--- NOTE | 2020-07-29 18:46 | CM.SWNOTE ---
Addendum entered by Adolph Hancock 07/29/20 20:33: ADD: OPTICAL LATHE OPERATOR updates patient, BRISSA Oneal of plan for communication with [facility]. RYAN Scott Addendum entered by Adolph Hancock 07/29/20 19:43: OPTICAL LATHE OPERATOR calls [facility] intake for update and speaks to Susan. Susan informs OPTICAL LATHE OPERATOR that they have received clinical packet and will be reviewing it this evening. OPTICAL LATHE OPERATOR gives [facility] [phone] for [facility] call back number due to upcoming shift end. RYAN Scott Original Note: OPTICAL LATHE OPERATOR note Following assessment, OPTICAL LATHE OPERATOR seeks open behavioral health bed for patient. OPTICAL LATHE OPERATOR contacts [facility], who informs OPTICAL LATHE OPERATOR that there are no open beds. OPTICAL LATHE OPERATOR contacts [facility] and speaks to Nargis in Intake. Nargis states they do have open beds at [facility] and requests clinicals. OPTICAL LATHE OPERATOR faxes clinical packet to [facility] at [phone]. OPTICAL LATHE OPERATOR updates patient who remains agreeable with plan, and discusses need for COVID test for transfer with patient and RN Amber. RN to talk to Dr. Penn to obtain order. OPTICAL LATHE OPERATOR will wait for contact from [facility] and update patient on plan for transfer. RYAN Scott
[2020-07-29] MEDS: NICOTINE 14 PATCH 14 MG TOP (18:52)
[2020-07-29 19:43] LABS: COVID19 -Nasal RAPID Negative (Negative)
--- NOTE | 2020-07-29 19:47 | PC.NURSE ---
Addendum entered by Ally Henderson CNA 07/29/20 22:22: Spoke w/RN re: siomara. Addendum entered by Ally Henderson CNA 07/29/20 22:20: Checked on pt who was laying in bed watching netflix. pt stated feeling a little anxious but was waiting on RN to come back re: ativan. Addendum entered by Ally Henderson CNA 07/29/20 20:01: Pt changed into scrubs and requested something for diarrhea. Notified RN. Informed pt's that all bagged belongings will be going home with her and okay to take wallet. Addendum entered by Ally Henderson CNA 07/29/20 19:56: pt changing into scrubs and removing all personal clothing. given issued scrubs with rifle case repairer socks. changing in room w/ Original Note: pt sitting comfortably in bed after ambulating to restroom. pt ate food w/ from [employer] in the box and stated he feels much better mentally. Pt also mentioned possible brain tumor dx but is waiting for results from scans done this week.
[2020-07-29] MEDS: LOPERAMIDE 2 MG CAPSULE PO (20:22)
[2020-07-29 21:30] VITALS: BP 123/79; PULSE 74; RESP 15; TEMP 37; O2SAT 100
[2020-07-29 21:45] VITALS: BP 123/79; PULSE 88; RESP 16; O2SAT 97
[2020-07-29] MEDS: ACETAMINOPHEN 325 MG TABLET 650 MG PO (21:52)
[2020-07-29] MEDS: LORazepam 0.5 MG TABLET 1 MG PO (22:27)
--- NOTE | 2020-07-29 23:04 | PC.NURSE ---
Stephanie Birch on Pt 1:1 @ 5907. Pt is calm and quite lying on gurney. Eyes closed chest rising and falling
--- NOTE | 2020-07-30 00:06 | PC.NURSE ---
Pt having a difficult time falling asleep. Pt states I just keep having alot of feelings of guilt about stuff that happened in the This sitter sat with Pt to have conversations to help Pt express feeling so he could try to get some rest. Pt also states having body pains and would like something to treat it, Nurse notified of Pt request for pain meds to sleep
[2020-07-30] MEDS: TRAMADOL 50 MG TABLET PO ×2 (00:13→07:19)
--- NOTE | 2020-07-30 00:15 | PC.NURSE ---
Medicated for his chronic back pain.He is aware of his admit acceptance to [facility] with departure time from here at approx. 0730.He was calm and thankfull.
[2020-07-30 06:45] VITALS: BP 125/76; PULSE 66; RESP 20; O2SAT 100
[2020-07-30] MEDS: SERTRALINE 50 MG TABLET PO (07:20)
--- NOTE | 2020-07-30 07:54 | PC.NURSE ---
Pt has left ED via [facility] to [facility]. End Pt watch
== END 2020-07-30 07:30 ==
PROVIDERS: Emergency Medicine; Nurse Practitioner; Emergency Provider Emergency Medicine; Family Provider Internal Medicine Hematology & Oncology; PCP Family Medicine
DX: F43.10 Post-traumatic stress disorder, unspecified (principal); R45.851 Suicidal ideations
CPT/HCPCS: 36415; 80053; 80305; 80320; 80329; 81001; 84439; 84443; 85025; 87635; 96361; 96374; 96375; 96376; 99285; G0480; J2060; J2405

== ENCOUNTER 2020-10-31 09:57 | Emergency (ER) | payer OTHER, SELFPAY ==
[2020-10-31 10:13] VITALS: BP 150/108; PULSE 64; RESP 18; TEMP 36.8; O2SAT 99; BMI 25.8
[2020-10-31 10:32] LABS: COVID19 -Nasal RAPID Negative (Negative)
--- NOTE | 2020-10-31 13:35 | ED_ITS ---
HPI - SOB/Dyspnea General Chief Complaint: Shortness of Breath/Dyspnea Stated Complaint: Covid symptoms Time Seen by Provider: 10/31/20 10:03 Source: patient Mode of arrival: Ambulatory Limitations: no limitations History of Present Illness HPI Narrative: 29-year-old male daily smoker presents with his in the chief complaint of multiple symptoms including runny nose, nasal congestion, dry hacking cough with some body aches. He denies any measurable fever or chills. He is not profoundly short of breath. He denies any vomiting or diarrhea but does have some nausea. He denies any exposure to persons known to have COVID MD Complaint: cough Onset (ago): day(s) Relieving factors: nothing Exacerbating factors: nothing Associated symptoms: denies other symptoms Treatment prior to arrival: none Related Data Home oxygen amount: none Previous Rx's Medication Instructions Recorded naloxone 4 mg/actuation nasal spray 4 mg NASAL Q2M PRN #2 each 05/06/20 sertraline 50 mg tablet 50 mg PO DAILY #90 tab 05/30/20 alprazolam 0.5 mg tablet 0.5 mg PO BID PRN #60 tab 06/24/20 fentanyl 50 mcg/hr transdermal 1 patch TRANSDERMAL Q72H #10 each 06/24/20 patch oxycodone 10 mg tablet 10 mg PO Q6H PRN #120 tab 06/24/20 Allergies Allergy/AdvReac Type Severity Reaction Status Date / Time barium sulfate Allergy Severe Gastrointestinal Verified 10/31/20 10:13 [BARIUM SULFATE] Upset levofloxacin [From LEVAQUIN] Allergy Unknown TENDONITIS Verified 10/31/20 10:13 ketorolac [From Toradol] Allergy Verified 10/31/20 10:13 indomethacin [INDOMETHACIN] AdvReac Severe MIGRAINE Verified 10/31/20 10:13 tramadol AdvReac Mild Verified 10/31/20 10:13 hydroxyzine AdvReac Verified 10/31/20 10:13 Review of Systems Constitutional Constitutional: Reports body ache(s), Reports chills, Denies fatigue, Denies fever(s), Denies frequent falls, Denies lethargy and Denies weakness Eyes Eyes: Denies change in vision, Denies eye discharge, Denies irritation and Denies loss of vision ENT Ears, Nose, Mouth, and Throat: Denies change in voice, Denies dizziness, Reports nasal congestion, Reports nasal discharge, Denies neck pain, Reports sore throat and Denies throat swelling Cardiovascular Cardiovascular: Denies chest pain, Denies irregular heart rhythm, Denies lightheadedness, Denies palpitations, Denies dyspnea, Denies dyspnea on exertion and Denies orthopnea Respiratory Respiratory: Reports cough, Denies dyspnea, Denies dyspnea on exertion and Denies wheezing Gastrointestinal Gastrointestinal: Denies abdominal pain, Denies change in bowel habits, Denies diarrhea, Reports nausea and Denies vomiting Musculoskeletal Musculoskeletal: Denies neck pain and Denies numbness Integumentary/Breasts Skin/Breast: Denies pruritus, Denies erythema, Denies rash and Denies wounds Neurologic Neurologic: Denies behavioral changes, Denies confusion, Denies dizziness, Denies frequent falls, Denies loss of vision, Denies numbness and Denies weakness Psychiatric Psychiatric: Denies anxiety, Denies behavioral changes, Denies confusion, Denies depression, Denies homicidal ideation and Denies suicidal ideation Endocrine Endocrine: Denies fatigue, Denies flushing and Denies palpitations Hematologic/Lymphatic Hematologic/Lymphatic: Denies easy bruising Allergic/Immunologic Allergic/Immunologic: Denies urticaria, Denies throat swelling and Denies wheezing Patient History Medical History (Updated 10/31/20 @ 10:14 by Alfa Vale DO) Anxiety disorder due to medical condition History of testicular cancer Inadequate pain control Low back pain Penile mass Pneumonia Psoas muscle strain Segmental and somatic dysfunction of abdomen and other regions Sinusitis Unexplained weight loss Surgical History Status post orchiectomy (08/22/13) Family History (Updated 03/16/16 @ 00:00 by Conversion Provider) Mother Hypertension Grandmother Age: 78 Kidney failure Social History Smoking Status: Current every day smoker Smoking Status: Current every day smoker alcohol intake frequency: 0-2 drinks per day Substance Use Type: marijuana Exam Narrative Exam Narrative: GENERAL: [29] year old patient appears stated age. Well- nourished, well-developed patient, in mild distress. HEAD: Atraumatic. Normocephalic. EYES: Pupils equal round and reactive. Extraocular motions intact. No scleral icterus. No injection or drainage. ENT: Nose without bleeding, purulent drainage. Throat without erythema, tonsillar hypertrophy or exudate. Airway patent. NECK: Trachea midline. Non tender CARDIOVASCULAR: Regular rate and rhythm without murmurs, gallops, or rubs. RESPIRATORY: Clear to auscultation. Breath sounds equal bilaterally. No wheezes, rales, or rhonchi. Occasional dry cough. No tachypnea, no significant work of breathing GASTROINTESTINAL: Abdomen soft, non-tender, nondistended. EXTREMITIES: No edema or joint tenderness. BACK: Nontender without deformity or crepitance. No flank tenderness. NEURO: AOx3. SKIN: No rash or erythema of visible areas Initial Vital Signs Initial Vital Signs: Vital Signs Temperature 98.3 F 10/31/20 10:13 Pulse Rate 64 10/31/20 10:13 Respiratory Rate 18 10/31/20 10:13 Blood Pressure 150/108 H 10/31/20 10:13 Pulse Oximetry 99 10/31/20 10:13 Course Orders Ordered: ED Orders 10/31/20 10:10 COVID19 Stat Vital Signs Vital signs: Vital Signs - 8 hr 10/31/20 10:13 Temperature 98.3 F Pulse Rate 64 Respiratory Rate 18 Blood Pressure 150/108 H Pulse Oximetry 99 MDM - SOB/Dyspnea Lab Data Labs: Lab Results 10/31/20 Range/Units 10:10 SARS-CoV-2 (PCR) Negative (Negative) Discharge Plan Departure Patient Disposition: Home Clinical Impression: Upper respiratory virus Instructions: DI for Viral Upper Respiratory Infection -- Adult, COVID-19 Viral Test Activity Restrictions/Additional Instructions: *You have been diagnosed with viral upper respiratory symptoms which could be [ COVID-19]. Your test is still pending *What to do: * per recommendations from the CDC and the [facility] Department of Health * stay home except to get medical care. Restrict activities outside your home, except for getting medical care. Do not go to work, school, or public areas. Avoid using public transportation, ride sharing, or taxis. * separate yourself from other people in your home. * call ahead before visiting your doctor * Wear a facemask * Cover your coughs and sneezes * Clean your hands often * Avoid sharing household items * Clean all high-touch services every day * Monitor your symptoms and seek prompt medical attention if your illness is worsening, particularly with difficulty in breathing. You may discontinue your isolation when: 1. You have been fever-free for at least 24 hours without the use of fever reducing medication, AND 2. Your symptoms are getting better 3. At least 10 days have passed since symptoms first appeared Individuals with laboratory confirmed COVID-19 who have not had any symptoms may discontinue home isolation when at least 10 days have passed since the date of their first COVID-19 diagnostic test and have had no subsequent illness Please consider taking antihistamine in addition to the other medications you've taken in order to dry up your secretions Prescriptions: No Action Narcan 4 mg/actuation spray,non-aerosol 4 mg NASAL Q2M PRN (Reason: opioid overdose) Qty: 2 RF: 2 sertraline 50 mg tablet 50 mg PO DAILY Qty: 90 RF: 1 fentanyl 50 mcg/hr patch 72 hour 1 patch transdermal Q72H Qty: 10 RF: 0 oxycodone 10 mg tablet 10 mg PO Q6H PRN (Reason: pain) Qty: 120 RF: 0 alprazolam 0.5 mg tablet 0.5 mg PO BID PRN (Reason: anxiety) Qty: 60 RF: 0 Referrals: Cheikh Garza DO [Primary Care Provider] -
== END 2020-10-31 10:28 | disposition home or self-care (01) ==
PROVIDERS: Emergency Provider Emergency Medicine; Family Provider Internal Medicine Hematology & Oncology; PCP Family Medicine
DX: J06.9 Acute upper respiratory infection, unspecified (principal); R06.02 Shortness of breath; Z20.822 Contact with and (suspected) exposure to COVID-19; R05 Cough
CPT/HCPCS: 87635; 99281; 99282

== ENCOUNTER 2021-01-08 16:25 | Emergency (ER) | payer SELFPAY ==
--- NOTE | 2021-01-08 16:31 | DI.RAD.S_ITS ---
PROCEDURE: XR ABDOMEN MIN 2V INDICATIONS: severe abdominal pain TECHNIQUE: 2 views of the abdomen were acquired. COMPARISON: [facility], CT, CT CHEST ABD PEL W CON, 02/07/2020, 11:03. FINDINGS: Surgical changes and devices: Multiple surgical clips in the abdomen and pelvis as before. Bowel: No pneumoperitoneum. The bowel gas pattern is normal. Soft tissues: No masses; visualized solid organ contours appear normal in size. No suspicious abdominal calcifications. Bones: No suspicious bony abnormalities. IMPRESSION: Abdomen without acute radiographic abnormalities. No evidence for bowel obstruction. Dictated by: Salazar Gonzales M.D. on 01/08/2021 at 16:50 Approved by: Salazar Gonzales M.D. on 01/08/2021 at 16:52
[2021-01-08 16:34] VITALS: BP 146/92; PULSE 88; RESP 16; TEMP 37.1; O2SAT 98; BMI 19.8
[2021-01-08 17:04] LABS: Add Manual Diff / Slide Review NO; Basophils Absolute Auto 0 /uL (0-100); Basophils Percent Auto 0.5 % (0-2); Eosinophils Absolute Auto 100 /uL (0-450); Eosinophils Percent Auto 1.1 % (2-4); Hematocrit 45.9 % (41-53); Hemoglobin 16.1 g/dL (13.5-17.5); Lymphocytes Absolute Auto 2100 /uL (1100-4500); Lymphocytes Percent Auto 23.1 % (25-40); Mean Corpuscular HGB Conc 35.2 % (30-36); Mean Corpuscular Hemoglobin 30.3 PG (26-34); Mean Corpuscular Volume 86.2 fL (80-100); Monocytes Absolute Auto 500 /uL (0-900); Monocytes Percent Auto 5.4 % (3-14); Neutrophils Absolute Auto 6400 /uL (1500-7000); Neutrophils Percent Auto 69.9 % (50-75); Platelet Count 220 X10^3/uL (150-400); Red Blood Cell Count 5.32 X10^6/uL (4.5-5.9); Red Cell Distribution Width 12.8 % (11.6-14.8); White Blood Cell Count 9.2 X10^3/uL (4.5-11.0)
--- NOTE | 2021-01-08 17:33 | ED_ITS ---
HPI - Abdominal Pain General Chief Complaint: Abdominal Pain Stated Complaint: thinks bowel blockage Time Seen by Provider: 01/08/21 16:25 Source: patient Mode of arrival: Ambulatory Limitations: no limitations History of Present Illness HPI narrative: 30-year-old male daily smoker with history of chronic abdominal pain presents with a chief complaint of severe lower abdominal pain, cramping and the passage of watery stool. He's had multiple evaluations and is scheduled for a colonoscopy in a few weeks. He's had no fever of chills. He has nausea but no vomiting. His pain is episodic. He has pain with BMs and occasions of unpredictable waves of pain. He's had mucous in his stool. He's had no recent travel or exposure to other ill persons. He has had symptoms for many months and has lost 20-[address] last [address] was a few weeks ago at [facility] without significant findings. Related Data Previous Rx's Medication Instructions Recorded naloxone 4 mg/actuation nasal spray 4 mg NASAL Q2M PRN #2 each 05/06/20 sertraline 50 mg tablet 50 mg PO DAILY #90 tab 05/30/20 alprazolam 0.5 mg tablet 0.5 mg PO BID PRN #60 tab 06/24/20 fentanyl 50 mcg/hr transdermal 1 patch TRANSDERMAL Q72H #10 each 06/24/20 patch oxycodone 10 mg tablet 10 mg PO Q6H PRN #120 tab 06/24/20 hyoscyamine sulfate 0.125 mg PO BID-QID PRN #20 tab 01/08/21 Allergies Allergy/AdvReac Type Severity Reaction Status Date / Time barium sulfate Allergy Severe Gastrointestinal Verified 01/08/21 16:36 [BARIUM SULFATE] Upset levofloxacin [From LEVAQUIN] Allergy Unknown TENDONITIS Verified 01/08/21 16:36 ketorolac [From Toradol] Allergy Verified 01/08/21 16:36 indomethacin [INDOMETHACIN] AdvReac Severe MIGRAINE Verified 01/08/21 16:36 tramadol AdvReac Mild Verified 01/08/21 16:36 hydroxyzine AdvReac Verified 01/08/21 16:36 Review of Systems Constitutional Constitutional: Denies chills, Denies fatigue, Denies fever(s), Denies frequent falls, Denies lethargy and Denies weakness Eyes Eyes: Denies change in vision, Denies eye discharge, Denies irritation and Denies loss of vision ENT Ears, Nose, Mouth, and Throat: Denies change in voice, Denies dizziness, Denies neck pain, Denies sore throat and Denies throat swelling Cardiovascular Cardiovascular: Denies chest pain, Denies irregular heart rhythm, Denies lightheadedness, Denies palpitations, Denies dyspnea, Denies dyspnea on exertion and Denies orthopnea Respiratory Respiratory: Denies cough, Denies dyspnea, Denies dyspnea on exertion and Denies wheezing Gastrointestinal Gastrointestinal: Reports abdominal pain, Denies change in bowel habits, Denies diarrhea, Denies nausea and Denies vomiting Musculoskeletal Musculoskeletal: Denies neck pain and Denies numbness Integumentary/Breasts Skin/Breast: Denies pruritus, Denies erythema, Denies rash and Denies wounds Neurologic Neurologic: Denies behavioral changes, Denies confusion, Denies dizziness, Denies frequent falls, Denies loss of vision, Denies numbness and Denies weakness Psychiatric Psychiatric: Denies anxiety, Denies behavioral changes, Denies confusion, Denies depression, Denies homicidal ideation and Denies suicidal ideation Endocrine Endocrine: Denies fatigue, Denies flushing and Denies palpitations Hematologic/Lymphatic Hematologic/Lymphatic: Denies easy bruising Allergic/Immunologic Allergic/Immunologic: Denies urticaria, Denies throat swelling and Denies wheezing Patient History Medical History Anxiety disorder due to medical condition History of testicular cancer Inadequate pain control Low back pain Penile mass Pneumonia Psoas muscle strain Segmental and somatic dysfunction of abdomen and other regions Sinusitis Unexplained weight loss Surgical History Status post orchiectomy (08/22/13) Family History Mother Hypertension Grandmother Age: 78 Kidney failure Social History Smoking Status: Current every day smoker Smoking Status: Current every day smoker tobacco type: vaping alcohol intake frequency: holidays/special occasions only Substance Use Type: marijuana Exam Narrative Exam Narrative: GENERAL: [30] year old patient appears stated age. Well- nourished, well-developed patient, in mild distress. HEAD: Atraumatic. Normocephalic. EYES: Pupils equal round and reactive. Extraocular motions intact. No scleral icterus. No injection or drainage. ENT: Nose without bleeding, purulent drainage. Throat without erythema, tonsillar hypertrophy or exudate. Airway patent. NECK: Trachea midline. Non tender CARDIOVASCULAR: Regular rate and rhythm without murmurs, gallops, or rubs. RESPIRATORY: Clear to auscultation. Breath sounds equal bilaterally. No wheezes, rales, or rhonchi. GASTROINTESTINAL: Abdomen soft, mild lower abdominal tenderness, nondistended. EXTREMITIES: No edema or joint tenderness. BACK: Nontender without deformity or crepitance. No flank tenderness. NEURO: AOx3. SKIN: No rash or erythema of visible areas Initial Vital Signs Initial Vital Signs: Vital Signs Temperature 98.7 F 01/08/21 16:34 Pulse Rate 88 01/08/21 16:34 Respiratory Rate 16 01/08/21 16:34 Blood Pressure 146/92 H 01/08/21 16:34 Pulse Oximetry 98 01/08/21 16:34 Course Orders Ordered: ED Orders 01/08/21 16:31 XR abdomen min 2V Stat 01/08/21 16:53 Complete Blood Count AUTO DIFF Stat 01/08/21 17:24 Comprehensive Metabolic Panel Stat Lipase Stat Discontinued Medications Sodium Chloride (Normal Saline 0.9%) 1,000 mls @ 1,000 mls/hr IV BOLUS ONE Stop: 01/08/21 17:30 Last Infusion: 01/08/21 18:22 Dose: 0 mls/hr Documented by: Admin: 01/08/21 17:37 Dose: 1,000 mls/hr Documented by: JASS Vital Signs Vital signs: Vital Signs - 8 hr 01/08/21 16:34 01/08/21 18:05 Temperature 98.7 F Pulse Rate 88 59 L Respiratory Rate 16 18 Blood Pressure 146/92 H 165/108 H Pulse Oximetry 98 99 MDM - Abdominal Pain Lab Data Result diagrams: 01/08/21 16:53 01/08/21 17:24 Labs: Lab Results 01/08/21 01/08/21 Range/Units 16:53 17:24 WBC 9.2 (4.5-11.0) X10^3/uL RBC 5.32 (4.5-5.9) X10^6/uL Hgb 16.1 (13.5-17.5) g/dL Hct 45.9 (41-53) % MCV 86.2 (80-100) fL MCH 30.3 (26-34) PG MCHC 35.2 (30-36) % RDW 12.8 (11.6-14.8) % Plt Count 220 (150-400) X10^3/uL Neut % (Auto) 69.9 (50-75) % Lymph % (Auto) 23.1 L (25-40) % [place] % (Auto) 5.4 (3-14) % Eos % (Auto) 1.1 L (2-4) % Baso % (Auto) 0.5 (0-2) % Neut # (Auto) 6400 (0489-2552) /uL Lymph # (Auto) 2100 (8628-9009) /uL [place] # (Auto) 500 (0-900) /uL Eos # (Auto) 100 (0-450) /uL Baso # (Auto) 0 (0-100) /uL Sodium 138 (137-145) mmol/L Potassium 3.6 (3.4-5.1) mmol/L Chloride 106 (98-107) mmol/L Carbon Dioxide 26 (22-32) mmol/L BUN 10 (9-20) mg/dL Creatinine 0.66 (0.66-1.25) mg/dL Estimated GFR > 60.0 (>60) mL/min BUN/Creatinine Ratio 15.2 (6-22) Glucose 93 (70-100) mg/dL Calcium 9.6 (8.4-10.2) mg/dL Total Bilirubin 0.3 (0.2-1.3) mg/dL AST 24 (17-59) IU/L ALT 14 (<50) IU/L Alkaline Phosphatase 55 (38-126) U/L Total Protein 7.8 (6.3-8.2) g/dL Albumin 4.7 (3.5-5.0) g/dL Globulin 3.1 (1.7-4.1) g/dL Albumin/Globulin Ratio 1.5 (1.0-2.8) Lipase 308 H (23-300) U/L Point of care testing: Urine Dip Bedside Urine Glucose Negative Bedside Urine Bilirubin - Negative Bedside Urine Ketone - Negative Urine Specific [place] 1.025 Bedside Urine Occult Blood - Negative Bedside Urine pH 6.0 Bedside Urine Protein - Negative Bedside Urine Urobilinogen - Negative Bedside Urine Nitrite - Negative Bedside Urine Leukocytes - Negative Esterase Imaging Data Abdominal x-ray: Radiologist's Impression: [facility] [place] [id number] ReportSigned Patient: Jarek Hernandez JMR#: [id number]: [id number]:[id number]/Sex: MDate of Service: 01/08/21Loc: EDAccession Number: [id number] Procedure: XR abdomen min 2V Ordering Provider: Alfa Vale D.O. PROCEDURE: XR ABDOMEN MIN 2V INDICATIONS: severe abdominal pain TECHNIQUE: 2 views of the abdomen were acquired. COMPARISON: [facility], CT, CT CHEST ABD PEL W CON, 02/07/2020, 11:03. FINDINGS: Surgical changes and devices: Multiple surgical clips in the abdomen and pelvis as before. Bowel: No pneumoperitoneum. The bowel gas pattern is normal. Soft tissues: No masses; visualized solid organ contours appear normal in size. No suspicious abdominal calcifications. Bones: No suspicious bony abnormalities. IMPRESSION: Abdomen without acute radiographic abnormalities. No evidence for bowel obstruction. Dictated by: Salazar Gonzales M.D. on 01/08/2021 at 16:50 Approved by: Salazar Gonzales M.D. on 01/08/2021 at 16:52 MDM Narrative Medical decision making narrative: Multiple etiologies for patient's symptoms considered including: [Bowel obstruction versus exacerbation of chronic illness versus other] Patient's symptoms improved over duration of stay with above-stated therapies. We discussed the utility of another CT, but both agree that given the chronicity of his symptoms, lack of lab abnormalities and familiar symptoms we could hold off. Findings and discharge diagnosis discussed with patient/family followed by verbalization of understanding Return precautions discussed with patient/family whom verbalize understanding. Discharge Plan Departure Patient Disposition: Home Clinical Impression: Abdominal pain Qualifiers: Abdominal location: lower abdomen, unspecified Qualified Code(s): R10.30 - Lower abdominal pain, unspecified Instructions: DI for Abdominal Pain-Adult Activity Restrictions/Additional Instructions: *You have been diagnosed with [Chronic abdominal pain, you have very reassuring labs and Xray demonstrates no signs of obstruction ] *What to do: *Take medications as directed *Follow up with your primary care provider in 2-3 days, call for an appointment. Let them know you were seen in the Emergency Department and that we ask that you be seen in follow up. Please contact Dr. Theodore regarding today's visit *Return to ER if you should have any new, worsening or concerning symptoms, such as [fever > 101F, vomiting or other concerning symptoms ] Prescriptions: New hyoscyamine sulfate 0.125 mg tablet 0.125 mg PO BID-QID PRN (Reason: dyspepsia) Qty: 20 RF: 0 No Action Narcan 4 mg/actuation spray,non-aerosol 4 mg NASAL Q2M PRN (Reason: opioid overdose) Qty: 2 RF: 2 sertraline 50 mg tablet 50 mg PO DAILY Qty: 90 RF: 1 fentanyl 50 mcg/hr patch 72 hour 1 patch transdermal Q72H Qty: 10 RF: 0 oxycodone 10 mg tablet 10 mg PO Q6H PRN (Reason: pain) Qty: 120 RF: 0 alprazolam 0.5 mg tablet 0.5 mg PO BID PRN (Reason: anxiety) Qty: 60 RF: 0 Referrals: Cheikh Garza DO [Primary Care Provider] -
[2021-01-08] MEDS: SODIUM CHLORIDE 0.9% 1,000 ML 1000 ML IV (17:37)
[2021-01-08 17:43] LABS: Alanine Aminotransferase 14 IU/L (<50); Albumin 4.7 g/dL (3.5-5.0); Albumin Globulin Ratio 1.5 (1.0-2.8); Alkaline Phosphatase 55 U/L (38-126); Aspartate Aminotransferase 24 IU/L (17-59); BUN Creatinine Ratio 15.2 (6-22); Bilirubin Total 0.3 mg/dL (0.2-1.3); Blood Urea Nitrogen 10 mg/dL (9-20); Calcium 9.6 mg/dL (8.4-10.2); Carbon Dioxide 26 mmol/L (22-32); Chloride 106 mmol/L (98-107); Estimated Glomerular Filt Rate > 60.0 mL/min (>60); Globulin 3.1 g/dL (1.7-4.1); Glucose 93 mg/dL (70-100); HEMOLYSIS < 15 (0-50); Lipase 308 U/L (23-300); Potassium 3.6 mmol/L (3.4-5.1); Sodium 138 mmol/L (137-145); Total Protein 7.8 g/dL (6.3-8.2)
[2021-01-08 18:05] VITALS: BP 165/108; PULSE 59; RESP 18; O2SAT 99
== END 2021-01-08 18:23 | disposition home or self-care (01) ==
PROVIDERS: Emergency Provider Emergency Medicine; Family Provider Internal Medicine Hematology & Oncology; PCP Family Medicine
DX: R10.30 Lower abdominal pain, unspecified (principal)
CPT/HCPCS: 36415; 74019; 80053; 81003; 83690; 85025; 96360; 99283; 99284

== ENCOUNTER → 2021-01-23 09:41 | Outpatient (CLI) | payer OTHER, SELFPAY ==
[2021-01-23 10:50] LABS: COVID19 -Nasal RAPID Negative (Negative)
== END ==
PROVIDERS: Family Provider Internal Medicine Hematology & Oncology; PCP Family Medicine; Visit Provider Surgery
DX: Z20.822 Contact with and (suspected) exposure to COVID-19 (principal)
CPT/HCPCS: 87635; C9803

== ENCOUNTER 2021-01-26 06:25 | Day surgery (SDC) | payer SELFPAY ==
--- NOTE | 2021-01-26 | PATH_ITS ---
[facility] Accession Number: [id number] . 01 Material submitted: . colon - RANDOM COLON BIOPSIES . 02 Diagnosis: Random Colon, Biopsies: Colonic mucosa with no diagnostic abnormality. Negative for active, chronic, and microscopic colitis. Negative for dysplasia and malignancy. . MRV 01/29/2021 1322 Local . 02 Electronically signed: . Miguelina Larsen MD, Pathologist NPI- [id number] . 01 Gross description: . RANDOM COLON BIOPSIES: Received in formalin are 4 fragment(s) of covarrubias, soft tissue measuring 0.1 x 0.1 x 0.1 cm to 0.3 x 0.2 x 0.2 cm submitted entirely in 1 cassette(s) /FLORENTINO 01/27/2021 2307 Local . 02 Pathologist provided ICD-10: K62.5 . 02 CPT . 292342 Performed at: 01 [facility] [address] [facility], [place], [place] [id number] MD Mathew Tompkins MD Phone: [phone] Performed at: 02 [facility] [address] [place], [place] [id number] MD Miguelina Larsen MD Phone: [phone]
[2021-01-26 07:09] VITALS: BP 130/76; PULSE 75; RESP 16; TEMP 36.9; O2SAT 100; BMI 19.8
[2021-01-26] MEDS: LACTATED RINGERS 1,000 ML 200 ML IV (07:35)
--- NOTE | 2021-01-26 07:41 | PM.PREOP ---
Pre-operative Note Interval Note History & Physical reviewed/Exam performed by Physician: Yes Changes to H&P: No
[2021-01-26] MEDS: MIDAZOLAM 5 MG/5 ML VIAL IV (07:50)
[2021-01-26] MEDS: fentaNYL 250 MCG/5 ML INJ IV (07:50)
--- NOTE | 2021-01-26 08:18 | PM.OP.ENDO ---
Operative Date/Time/Diagnoses Date of procedure: 01/26/21 Pre-op diagnosis: abdominal pain Post-op diagnosis: other (colitis) Procedure & Clinicians Study performed: Colonoscopy Same procedure as scheduled: Yes Indications: 30-year-old male this is his 4th colonoscopy for abdominal pain with report of blood per rectum. Surgeon: Eddi Theodore Procedure Notes Procedure in detail: Medications: Conscious sedation using 8mg IV midazolam and 300mcg IV of fentanyl The history and physical was performed/updated and the patient is ASA class is 2. The procedure was discussed in detail with the patient. Potential risks complications including infection, bleeding, missed diagnosis, perforation, need for surgery, and were explained. Their questions were answered and informed consent was obtained. Patient was brought to the procedure room and placed standard monitoring equipment. The patient's vital signs were monitored continuously throughout the entire procedure. Prior to starting time-out was performed. The patient was placed in the left lateral recumbent position. Procedural sedation was administered. Examination began with a thorough inspection of the perianal area there was no evidence of fissures, fistulae, external hemorrhoids or cutaneous malignancy. The colonoscopy scope was then placed into the anal canal and was advanced to the cecum, which was identified by the ileocecal valve, the appendiceal orifice and the confluence of the taenia. The scope was then slowly withdrawn examining colon thoroughly in all directions, irrigating it of any residual stool. Mild colitis of the rectum. No active hemorrhage. No continuous plaques of irritation there is petechiae. Random colonic biopsies of the rectum were performed No significant diverticular disease The patient tolerated the procedure well. They will be discharged once criteria are met. The prep was of good/excellent quality. The withdrawl time was 7 minutes. The sedation time was 26 minutes. Specimen(s): other (Random colonic biopsies) Complications: none Impression: Colitis Post-procedure Recommendations: Will call with biopsy results Disposition: same day surgery
[2021-01-26 08:23] VITALS: BP 130/80; PULSE 71; RESP 20; TEMP 36.9; O2SAT 99
[2021-01-26 08:28] VITALS: BP 120/79; PULSE 68; RESP 15; O2SAT 99
[2021-01-26 08:33] VITALS: BP 117/81; PULSE 66; RESP 15; O2SAT 99
--- NOTE | 2021-01-26 08:35 | SUR.PHASEI ---
Awake throughout procedure, awake and oriented on arrival to PACU. Wants to go home. Has hiccups which he states that he gets periodically. Tolerating fluids well
[2021-01-26 08:37] VITALS: BP 115/66; PULSE 51; RESP 11; TEMP 37.2; O2SAT 99
--- NOTE | 2021-01-26 08:50 | SUR.PHASEII ---
Patient relaxed, states that he has vicoden at home which he takes when needed for the pain. Verbalized displeasure that he was awake throughout the procedure. Otherwise, calm and pleasant, appreciative. 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
== END 2021-01-26 08:49 | disposition home or self-care (01) ==
PROVIDERS: Family Provider Internal Medicine Hematology & Oncology; PCP Family Medicine; Referring Provider Family Medicine; Visit Provider Surgery
PROC: 0DJD8ZZ Inspection of Lower Intestinal Tract, Via Natural or Artificial Opening Endoscopic (ICD-10-PCS; CPT 45378; principal; 2021-01-26 07:45)
DX: K52.9 Noninfective gastroenteritis and colitis, unspecified (principal); F17.210 Nicotine dependence, cigarettes, uncomplicated
CPT/HCPCS: 45380; 99152; J2250; J3010

== ENCOUNTER 2021-06-02 12:46 | Emergency (ER) | payer OTHER, SELFPAY ==
[2021-06-02 13:09] VITALS: BP 146/88; PULSE 84; RESP 22; TEMP 36.7; O2SAT 99
--- NOTE | 2021-06-02 13:20 | DI.US.S_ITS ---
PROCEDURE: US SCROTUM INDICATIONS: PAIN WITH EJACULATION. TESTICULAR CANCER HISTORY. TECHNIQUE: Real-time scanning was performed of the scrotum and testicles, with image documentation. Color and pulse Doppler interrogation was performed of both testicles. COMPARISON: None. FINDINGS: Right: Status post right orchiectomy with right testicular prosthesis. Left: Normal size and appearance of the left testicle. No testicular mass. There are a few small epididymal head cysts, largest measuring 4 millimeters. Otherwise normal appearance of the epididymis. No hydrocele or varicocele. Doppler: Color and pulse Doppler demonstrate normal and symmetric arterial flow in both testicles. IMPRESSION: Normal appearance of the left testicle and left hemiscrotum. Status post right orchidectomy with right testicular prosthesis. Dictated by: Jan Duran M.D. on 06/02/2021 at 14:00 Approved by: Jan Duran M.D. on 06/02/2021 at 14:01
[2021-06-02 15:10] LABS: Urine N gonorrhoeae NOT DETECTED
[2021-06-02 15:11] LABS: Urine Chlamydia NOT DETECTED
[2021-06-02] MEDS: ONDANSETRON 4 MG ODT SL (16:05)
--- NOTE | 2021-06-02 16:05 | PC.NURSE ---
patient raised his voice and concerns with me that I am in pain and I only have one left and I don't want to lose it. I need to see a doctor. Provider and charge nurse aware.
--- NOTE | 2021-06-02 17:31 | ED_ITS ---
HPI - Male Genitourinary General Chief complaint: Urogenital-Male Stated complaint: testical pain/history of testicular cancer Time Seen by Provider: 06/02/21 17:31 Source: patient Mode of arrival: Ambulatory Limitations: no limitations History of Present Illness HPI Narrative: This is a 30-year-old male comes with complaint of LEs take to kill or pain which has been intermittent. Patient states he is quite concerned he had right testicular cancer he has had an orchiectomy as well as lymph nodes removed in his right abdomen in the past. Patient states he has had increased pain in the left testicle he contacted his urologist who told him to come here for evaluation and possibly ultrasound. Patient has not had fevers. He denies any nausea or vomiting. He has not had any issues with urination he does not pain when he urinates such as dysuria, frequency or urgency. He has not had any bowel movements issues. Patient does note that when he ejaculates because of significant pain in the left testicle. Patient has had prostatitis in the past and had significant frequency and dysuria but is not having symptoms consistent with this at that time. Patient states he has been checked for infections in th e past as well as gonorrhea chlamydia those have been negative. He has seen a prostate specialty physician at [facility] in regards to his prostatitis. He was following with Dr. Kirby at [facility] and continues to see that group. He does also note that he has been told he has several small cysts or changes in the epididymis region on the left which have been present on prior ultrasound. Related Data Previous Rx's Medication Instructions Recorded cyclobenzaprine 5 mg tablet 5 mg PO TID PRN #30 tab 05/06/21 diazepam 2 mg tablet 2 mg PO BID PRN #60 tab 05/06/21 dicyclomine 20 mg tablet 20 mg PO TID PRN #30 tab 05/06/21 oxycodone 5 mg tablet 5 mg PO QID PRN #5 tab 06/02/21 Allergies Allergy/AdvReac Type Severity Reaction Status Date / Time barium sulfate Allergy Severe Gastrointestinal Verified 05/06/21 16:31 [BARIUM SULFATE] Upset levofloxacin [From LEVAQUIN] Allergy Unknown TENDONITIS Verified 05/06/21 16:31 ketorolac [From Toradol] Allergy Verified 05/06/21 16:31 indomethacin [INDOMETHACIN] AdvReac Severe MIGRAINE Verified 05/06/21 16:31 tramadol AdvReac Mild Verified 05/06/21 16:31 hydroxyzine AdvReac Verified 05/06/21 16:31 Review of Systems Review of Systems ROS Unobtainable: All systems reviewed & are unremarkable except as noted in HPI and below Patient History Medical History Anxiety Chronic colitis History of testicular cancer Inadequate pain control Low back pain Penile mass Pneumonia Psoas muscle strain Segmental and somatic dysfunction of abdomen and other regions Sinusitis Surgical History Status post orchiectomy (08/22/13) Family History Mother Hypertension Grandmother Age: 78 Kidney failure Social History household members: spouse Smoking Status: Current every day smoker alcohol intake: never Smoking Status: Current every day smoker tobacco type: vaping alcohol intake frequency: holidays/special occasions only Substance Use Type: marijuana Exam Narrative Exam Narrative: GENERAL: Alert and oriented x three, thin male in mild distress. Patient does appear quite anxious. HEENT: Head normocephalic, atraumatic, EOMI, pupils reactive, face symmetric, moist mucous membranes NECK: Supple, full range of motion CARDIOVASCULAR: Regular rate and rhythm without murmurs, rubs or gallops. RESPIRATORY: Breath sounds equal bilaterally, no wheezes rales or rhonchi. ABDOMEN: Soft, nontender. Normoactive bowel sounds all 4 quadrants. No guarding or rebound, rigidity, no mass : No CVA tenderness. Male: normal external examination on left, patient has some right testicle is smaller in consistent with prosthesis and prior orchectomy, no penile discharge or lesions, testicles non-tender on right, mild tenderness to the left, cremasteric reflex intact, no inguinal hernias noted. No skin changes, warmth or redness or other swelling noted. EXTREMITIES: Normal range of motion, no clubbing or edema. Neurovascularly intact NEUROLOGICAL: Cranial nerves II through XII grossly intact. Moving all extremities SKIN: Warm, dry, no petechiae, no rashes or lesions. Initial Vital Signs Initial Vital Signs: Vital Signs Temperature 98.1 F 06/02/21 13:09 Pulse Rate 84 06/02/21 13:09 Respiratory Rate 22 06/02/21 13:09 Blood Pressure 146/88 H 06/02/21 13:09 Pulse Oximetry 99 06/02/21 13:09 Course Orders Ordered: ED Orders 06/02/21 13:20 US scrotum Stat 06/02/21 13:29 Chlamydia Gonorrhea PCR -URINE Stat Discontinued Medications Hydromorphone HCl (Hydromorphone 1 Mg Inj) 0.5 mg IM NOW ONE Stop: 06/02/21 17:54 Last Admin: 06/02/21 18:04 Dose: 0.5 mg Documented by: Ondansetron HCl (Ondansetron 4 Mg Odt) 4 mg SL NOW ONE Stop: 06/02/21 16:01 Last Admin: 06/02/21 16:05 Dose: 4 mg Documented by: VINCENZO Vital Signs Vital signs: Vital Signs - 8 hr 06/02/21 13:09 06/02/21 18:00 Temperature 98.1 F Pulse Rate 84 84 Respiratory Rate 22 18 Blood Pressure 146/88 H 145/80 H Pulse Oximetry 99 99 MDM - Male Genitourinary Lab Data Labs: Lab Results 06/02/21 Range/Units 13:29 Ur Chlamydia DNA (PCR) Not detected N gonorrhoeae DNA (PCR) Not detected Urine Dip Bedside Urine Glucose Negative Bedside Urine Bilirubin - Negative Bedside Urine Ketone - Negative Urine Specific [place] 1.020 Bedside Urine Occult Blood - Negative Bedside Urine pH 6.0 Bedside Urine Protein - Negative Bedside Urine Urobilinogen - Negative Bedside Urine Nitrite - Negative Bedside Urine Leukocytes - Negative Esterase Imaging Data scrotal US: Radiologist's Impression: [address] [id number] ReportSigned Patient: Jarek Hernandez JMR#: [id number]: [id number]:[id number]/Sex: te of Service: 06/02/21Loc: EDAccession Number: [id number] Procedure: US scrotum Ordering Provider: Michelle Otoole D.O. PROCEDURE: US SCROTUM INDICATIONS: PAIN WITH EJACULATION. TESTICULAR CANCER HISTORY. TECHNIQUE: Real-time scanning was performed of the scrotum and testicles, with image documentation. Color and pulse Doppler interrogation was performed of both testicles. COMPARISON: None. FINDINGS: Right: Status post right orchiectomy with right testicular prosthesis. Left: Normal size and appearance of the left testicle. No testicular mass. There are a few small epididymal head cysts, largest measuring 4 millimeters. Otherwise normal appearance of the epididymis. No hydrocele or varicocele. Doppler: Color and pulse Doppler demonstrate normal and symmetric arterial flow in both testicles. IMPRESSION: Normal appearance of the left testicle and left hemiscrotum. Status post right orchidectomy with right testicular prosthesis. Dictated by: Jan Duran M.D. on 06/02/2021 at 14:00 Approved by: Jan Duran M.D. on 06/02/2021 at 14:01 [facility] Narrative Medical decision making narrative: This is a 30-year-old well-appearing male who comes with complaint of left sick taking a or pain which has been intermittent and chronic. He does follow with Urology he has an appointment already delmis eduled for later this month. Patient urine, urine GC and ultrasound do not show any new acute changes. He notes himself that he has been told he has several small changes at the epididymis consistent with today's ultrasound. Patient was given a dose of medication for pain control a short course of oral narcotic. Casper PW P was reviewed he had a recent large prescription for benzodiazepines but has not had any narcotics filled since February. Patient feels comfortable with this plan all questions were answered. Discharge Plan Departure Patient Disposition: Home Clinical Impression: Left testicular pain Activity Restrictions/Additional Instructions: Follow up with your urology time at your planned appointment. Your US today shows no new changes. Take pain medications as prescribed. This medication can make you sleepy do not drive, perform hazardous activities or make any major decisions while taking it. This medication will make you constipated please take a stool softener once to twice daily until stools are soft and regular. Prescription was sent to [facility]. Please return for fevers, rapidly worsening symptoms, new redness increasing swelling, inability to urinate, new or worsening abdominal pain, persistent vomiting, inability to have bowel movement or black or bloody stools or other new or concerning symptoms. Prescriptions: New oxycodone 5 mg tablet 5 mg PO QID PRN (Reason: pain) Qty: 5 RF: 0 No Action cyclobenzaprine 5 mg tablet 5 mg PO TID PRN (Reason: muscle spasm) Qty: 30 RF: 1 diazepam 2 mg tablet 2 mg PO BID PRN (Reason: anxiety) Qty: 60 RF: 0 dicyclomine 20 mg tablet 20 mg PO TID PRN (Reason: Stomach cramping) Qty: 30 RF: 5 Referrals: Cheikh Garza DO [Primary Care Provider] -
[2021-06-02 18:00] VITALS: BP 145/80; PULSE 84; RESP 18; O2SAT 99
[2021-06-02] MEDS: HYDROMORPHONE 1 MG INJ 0.5 MG IM (18:04)
[2021-06-02 18:08] VITALS: BP 145/80; PULSE 84; RESP 18; O2SAT 99
== END 2021-06-02 18:08 | disposition home or self-care (01) ==
PROVIDERS: Emergency Provider Emergency Medicine; Family Provider Internal Medicine Hematology & Oncology; PCP Family Medicine
DX: N50.812 Left testicular pain (principal); Z85.47 Personal history of malignant neoplasm of testis
CPT/HCPCS: 76870; 81003; 87491; 87591; 96372; 99283; 99284; J1170

== ENCOUNTER → 2021-08-25 08:59 | Outpatient (CLI) | payer OTHER, SELFPAY ==
[2021-08-25 09:37] LABS: COVID19 -Nasal RAPID Negative (Negative)
== END ==
PROVIDERS: Family Provider Internal Medicine Hematology & Oncology; PCP Family Medicine; Visit Provider Urology
DX: Z20.822 Contact with and (suspected) exposure to COVID-19 (principal)
CPT/HCPCS: 87635; C9803

== ENCOUNTER → 2021-09-08 16:11 | Outpatient (CLI) | payer OTHER, SELFPAY ==
--- NOTE | 2021-09-08 16:12 | DI.MRI.S_ITS ---
PROCEDURE: MR PELIS WO/W CON INDICATIONS: ? Left ejaculatory duct obstructions/ Left spermatic cord pain TECHNIQUE: Coronal HASTE, axial T1 FSE with fat saturation, 3-plane nonbreath-hold T2 FSE. After the administration of contrast, dynamic axial, delayed axial and coronal VIBE or 2-D FLASH with fat saturation through the pelvis. Optional diffusion weighted imaging and ADC may be performed. COMPARISON: None. FINDINGS: Image quality: Diffusion weighted and dynamic contrast enhanced images are diagnostic. Prostate: Gland size is 4.8 x 3.0 x 3.3 cm; ellipsoid gland volume is 25 mL. There is mild heterogeneity of the prostate with mild heterogeneous enhancement in the peripheral zone. A small peripherally enhancing left paramedian cyst is demonstrated within the left posterior peripheral zone measuring 0.8 x 0.6 x 0.8 cm at the level of the mid prostate. No discrete suspicious solid prostatic mass. Genitourinary system: Bladder wall thickness is normal. Distal ureters are non distended. The seminal vesicles appear within normal size limits bilaterally. Bowel and peritoneum: No pathologic free pelvic fluid. Inferior colon and small bowel loops are normal in caliber. Nodes and vessels: No pelvic or inguinal adenopathy by size criteria. Iliac vessels are normal in caliber. Soft tissues: No inguinal hernias. Bones: Marrow demonstrates normal overall signal without suspicious focal lesions identified. IMPRESSION: 1. Small left paramedian peripherally enhancing cyst within the prostate is nonspecific but suggestive of an ejaculatory duct cyst given clinical history. Dictated by: Mathew Green M.D. on 09/09/2021 at 9:24 Approved by: Mathew Green M.D. on 09/09/2021 at 9:35
== END ==
PROVIDERS: Family Provider Internal Medicine Hematology & Oncology; PCP Family Medicine; Referring Provider Urology; Visit Provider Urology
DX: N50.89 Other specified disorders of the male genital organs (principal); N53.12 Painful ejaculation; N42.81 Prostatodynia syndrome; Z85.47 Personal history of malignant neoplasm of testis; N42.83 Cyst of prostate
CPT/HCPCS: 72197; A9579

== ENCOUNTER → 2021-10-12 14:46 | Outpatient (CLI) | payer SELFPAY ==
[2021-10-12 17:17] LABS: COVID19 -Nasal RAPID Negative (Negative)
== END ==
PROVIDERS: Family Provider Internal Medicine Hematology & Oncology; PCP Family Medicine; Referring Provider Urology; Visit Provider Urology
DX: Z20.822 Contact with and (suspected) exposure to COVID-19 (principal)
CPT/HCPCS: 87635

== ENCOUNTER 2021-10-15 10:53 | Day surgery (SDC) | payer SELFPAY ==
[2021-08-26 07:52] VITALS: BMI 20.5
[2021-10-15] VITALS (9 sets, daily range): BP systolic 90–121; BP diastolic 45–80; PULSE 46–85; RESP 11–18; TEMP 36.1–36.8; O2SAT 94–98; BMI 21.2
--- NOTE | 2021-10-15 11:21 | PM.PREOP ---
Pre-operative Note COVID-19 COVID-19 status: Negative Result date/Date tested (Pos, Neg/Pending): 10/12/21 Interval Note History & Physical reviewed/Exam performed by Physician: Yes Changes to H&P: No
[2021-10-15] MEDS: LACTATED RINGERS 1,000 ML 25 ML IV (11:38)
[2021-10-15] MEDS: CEFAZOLIN 2 GM/20 ML SYRINGE IV (11:53)
[2021-10-15] MEDS: BELLADONNA/OPIUM SUPPOSITORIES 1 EACH PR (12:05)
[2021-10-15] MEDS: LIDOCAINE 2% (GLYDO) 6 ML GEL TOP (12:07)
--- NOTE | 2021-10-15 12:08 | SUR.OPER ---
Lithotomy on padded OR bed, head on pillow, arms secured on padded arm boards at <90 degrees abduction. Legs secured in padded yellow fins stirrups.
--- NOTE | 2021-10-15 12:14 | PM.OP.1 ---
Procedure & Clinicians Procedure: Cystoscopy with possible ejaculatory duct unroofing Same procedure as scheduled: Yes Indications: This is a very pleasant 30-year-old male who comes in with multiple pelvic pain complaints but 1 specifically was ejaculatory pain. Imaging was revealed that he had what looked like an ejaculatory duct cyst. Possible ejaculatory duct obstruction. He presents this time for investigation and appropriate treatment. Surgeon: Speedy Stratton Click Yes if Unassisted: Yes Anesthesia Type: General Operative Notes Findings: Urethral meatus normal urethra normal to the prostatic fossa which shows minimal obstructive character. Ureteral orifices in normal position with clear efflux bladder is in a word normal. The verumontanum is normal. Um and at cystoscopy with visualization of the left ejaculatory duct orifice and prostate massage copious amounts of semen were seen to easily flow from the orifice. There was no evidence of stone or blockage. So at this point the bladder was drained and the procedure was stopped. Closure Type: not applicable Specimen(s): none sent Prosthetic devices, grafts, tissues, transplants, or devices: None Estimated Blood Loss (mL): 0 Procedure in detail: After informed consent was obtained, the patient was identified and brought to the operating room. The patient was placed in a supine position on the table and anesthesia was induced and maintained. After showing an adequate level of anesthesia the patient was transitioned to the lithotomy position. The patient was then prepped, draped and prepared for transurethral procedure. After prepping draping and ensuring an adequate level of anesthesia a 17 [place] cystoscope was passed through the urethra prostate and into the bladder. In the bladder cystoscopy was performed. Then the left ejaculatory duct orifice was identified. And with a over glove prostate massage was performed. This resulted in a copious and easy flow of semen from the left ejaculatory duct orifice. At this point the bladder was drained, the scope was removed, 2% viscous lidocaine was instilled within the urethra and a B and O suppository was placed in the rectum. The patient was awakened having tolerated the procedure well. There were no complications. Complications: none Post-operative Condition: stable Disposition: PACU Plan for aftercare: Patient will follow-up my office in 2-3 weeks.
[2021-10-15] MEDS: PHENAZOPYRIDINE 100 MG TABLET 200 MG PO (13:13)
--- NOTE | 2021-10-15 13:31 | SUR.PHASEII ---
phase 2 10/15/21 315 1300-recieved report from Christen BRUMFIELD, Pacu. patient attempting to dress in pacu in anticipation of leaving hospital. Transitioned to phase 2. offered po fluids. 1315-Dr Stratton notified of patient being frustrated and very upset, c.o burning sensation only and feels his prostate swelling up. Md spoke with patient earlier, not satisfied. stating that he got lidocaine urojet and does not feel effective. stated things he discussed preop were not listened too. Pt voided-states bloody. patient aware procedure may be normal for bloody urine over next few days. Patient cycling thru same conversation venting feelings of displeasure. No new orders from MD. patient dressed and wants out of hospital aneta. ride on way. 1325-pyridium given orally. patient discharged to home after home instructions completed/given to patient . home to 's care/car. to stop at [facility] for RX pickup once gets wallet.
== END 2021-10-15 13:25 | disposition home or self-care (01) ==
PROVIDERS: Family Provider Internal Medicine Hematology & Oncology; PCP Family Medicine; Referring Provider Urology; Visit Provider Urology
PROC: 0TJB8ZZ Inspection of Bladder, Via Natural or Artificial Opening Endoscopic (ICD-10-PCS; CPT 52000; principal; 2021-10-15 13:00)
DX: N53.12 Painful ejaculation (principal); N42.81 Prostatodynia syndrome; N50.89 Other specified disorders of the male genital organs; Z85.47 Personal history of malignant neoplasm of testis; F17.210 Nicotine dependence, cigarettes, uncomplicated; F43.10 Post-traumatic stress disorder, unspecified
CPT/HCPCS: 52000; 82962; J0690; J2704; J3010

== ENCOUNTER → 2022-12-15 15:58 | Outpatient (CLI) | payer OTHER, SELFPAY ==
[2022-12-15 17:35] LABS: Influenza A - CEPHEID Flu A NEGATIVE (NEGATIVE); Influenza B - CEPHEID Flu B NEGATIVE (NEGATIVE); Respiratory Syncytial Virus Negative (Negative)
[2022-12-15 17:47] LABS: COVID-19 CEPHEID 4-PLEX PCR Negative (Negative)
== END ==
PROVIDERS: Family Provider Internal Medicine Hematology & Oncology; PCP Family Medicine; Visit Provider Nurse Practitioner Family
DX: R05.1 Acute cough (principal); Z20.822 Contact with and (suspected) exposure to COVID-19
CPT/HCPCS: 0241U

== ENCOUNTER → 2023-01-16 10:43 | Outpatient (CLI) | payer OTHER, SELFPAY ==
--- NOTE | 2023-01-16 10:45 | DI.MRI.S_ITS ---
PROCEDURE: MR KNEE RT WO CON INDICATIONS: Effusion, right knee TECHNIQUE: Noncontrast sagittal PD fast spin echo and T2 fast spin echo with fat saturation, sagittal 3-D FLASH with fat saturation; coronal T1 spin echo and PD fast spin echo with fat saturation, and axial PD fast spin echo with fat saturation through the knee. COMPARISON: None. FINDINGS: Image quality: Excellent. Anterior Cruciate Ligament: Intact. Posterior Cruciate Ligament: Intact. Medial Collateral Ligament: Intact. Lateral Collateral Ligament: Intact. Medial Meniscus: Intact. Lateral Meniscus: Intact. Medial and Lateral Tendons: The semimembranosus tendon insertions and meniscocapsular junction appear intact. Visualized portions of the pes anserinus tendons appear normal. No abnormal bursal fluid. The long and short heads of the biceps femoris tendon appear intact. The popliteus tendon appears intact. No signs of posterolateral corner injury. Iliotibial band appears normal. Anterior Structures: The quadriceps and patellar tendons appear intact. No patellar subluxation. No femoral trochlear dysplasia or ventral trochlear prominence. No edema in the infrapatellar fat pad. Bones: No acute trabecular bone injury or fracture. Medial Femorotibial Cartilage: Intact. Lateral Femorotibial Cartilage: Intact. Patellofemoral Cartilage: Intact. Soft Tissues: A physiologic amount of joint fluid is present. Small medial popliteal cyst is present with mild adjacent soft tissue edema.. The musculature surrounding the knee is normal in bulk. IMPRESSION: 1. No acute trabecular bone injury. Cruciate and collateral ligaments are intact. No meniscal tear or focal cartilage defect is seen. 2. Small medial popliteal cyst with mild adjacent soft tissue edema that may be secondary to prior cyst rupture. Approved by: Marquez Fabian M.D. on 01/17/2023 at 8:59
== END ==
PROVIDERS: Family Provider Internal Medicine Hematology & Oncology; PCP Family Medicine; Referring Provider Family Medicine; Visit Provider Family Medicine
DX: M71.21 Synovial cyst of popliteal space [Baker], right knee (principal); M25.461 Effusion, right knee
CPT/HCPCS: 73721

== ENCOUNTER 2024-04-02 09:31 | Emergency (ER) | payer OTHER, SELFPAY ==
[2024-04-02] VITALS (12 sets, daily range): BP systolic 119–141; BP diastolic 76–92; PULSE 55–107; RESP 13–22; TEMP 37.2; O2SAT 96–98; BMI 23.5
--- NOTE | 2024-04-02 09:39 | DI.RAD.S_ITS ---
PROCEDURE: XR CHEST 1V INDICATIONS: chest pain TECHNIQUE: One view of the chest was acquired. COMPARISON: None. FINDINGS: Surgical changes and devices: None. Lungs and pleura: Lungs are clear. No pleural effusions or pneumothorax. Mediastinum: Mediastinal contours appear normal. Heart size is normal. Bones and chest wall: No suspicious bony lesions. Overlying soft tissues appear unremarkable. IMPRESSION: No acute pulmonary process. Dictated by: Kasie Vega M.D. on 04/02/2024 at 10:19 Approved by: Kasie Vega M.D. on 04/02/2024 at 10:23
[2024-04-02 09:50] LABS: Add Manual Diff / Slide Review NO; Basophils Absolute Auto 0 /uL (0-100); Basophils Percent Auto 0.5 % (0-2); Eosinophils Absolute Auto 100 /uL (0-450); Eosinophils Percent Auto 1.5 % (2-4); Hematocrit 53.5 % (41-53); Hemoglobin 18.7 g/dL (13.5-17.5); Lymphocytes Absolute Auto 2000 /uL (1100-4500); Lymphocytes Percent Auto 25.6 % (25-40); Mean Corpuscular HGB Conc 34.9 % (30-36); Mean Corpuscular Hemoglobin 30.4 PG (26-34); Mean Corpuscular Volume 87.3 fL (80-100); Monocytes Absolute Auto 400 /uL (0-900); Monocytes Percent Auto 5.3 % (3-14); Neutrophils Absolute Auto 5100 /uL (1500-7000); Neutrophils Percent Auto 67.1 % (50-75); Platelet Count 290 X10^3/uL (150-400); Red Blood Cell Count 6.13 X10^6/uL (4.5-5.9); Red Cell Distribution Width 14.8 % (11.6-14.8); White Blood Cell Count 7.6 X10^3/uL (4.5-11.0)
[2024-04-02] MEDS: SODIUM CHLORIDE 0.9% 1,000 ML 150 ML IV (09:51)
--- NOTE | 2024-04-02 09:52 | ED.CHESTPAIN ---
HPI - Chest Pain General Chief Complaint: Chest Pain Stated Complaint: severe, chest pain L side, high bp Time Seen by Provider: 04/02/24 09:39 Source: patient Mode of arrival: Ambulatory Limitations: no limitations History of Present Illness HPI narrative: 33-year-old male with recent dry cough for the last 2 days, woke up this morning 530 with left anterior chest pain, severe, worse with inspiration, tried to walk around and move around but he had increasing pain. No pain to leg, no leg swelling symptoms. Has history of PTSD, took his morning medications including antianxiety medications, as well as tramadol chronic knee arthritic pain. History of allergies to NSAIDs noted. He did not try any other medications. There is some associated diaphoresis upon awakening, that resolved. He denies any recent fall, trauma, new activities. No known exposure to any persons known to have recent diagnosis COVID or influenza, or any other viral documented illnesses. Related Data Home Medications Medication Instructions Recorded Confirmed ibuprofen 200 mg tablet 800 mg PO Q6H PRN Pain 08/21/21 12/15/22 Previous Rx's Medication Instructions Recorded dicyclomine 20 mg tablet 20 mg PO TID PRN Stomach cramping 08/25/21 #30 tabs phenazopyridine 200 mg tablet 200 mg PO TID PRN Bladder 10/15/21 (Pyridium) irritation #30 tabs cyclobenzaprine 5 mg tablet 5 mg PO TID PRN muscle spasm #30 11/23/21 tabs diazepam 2 mg tablet See Rx Instructions .Route 12/17/21 .COMPLEX #60 tabs benzonatate 100 mg capsule 100 mg PO BID PRN cough #20 caps 12/15/22 Allergies Allergy/AdvReac Type Severity Reaction Status Date / Time barium sulfate Allergy Severe Gastrointestinal Verified 04/02/24 09:48 [BARIUM SULFATE] Upset levofloxacin [From LEVAQUIN] Allergy Unknown TENDONITIS Verified 04/02/24 09:48 ketorolac [From Toradol] Allergy Verified 04/02/24 09:48 indomethacin [INDOMETHACIN] AdvReac Severe MIGRAINE Verified 04/02/24 09:48 gabapentin AdvReac Vomiting Verified 04/02/24 09:48 Review of Systems Review of Systems Narrative: As per HPI Patient History Medical History Anxiety Chronic colitis History of testicular cancer Inadequate pain control Low back pain Painful ejaculation Penile mass Pneumonia Psoas muscle strain PTSD (post-traumatic stress disorder) Segmental and somatic dysfunction of abdomen and other regions Sinusitis Tender prostate Surgical History Status post orchiectomy (08/22/13) Family History Mother Hypertension Grandmother Age: 79 Kidney failure Grandfather Cancer Social History household members: spouse leisure activities: exercise Smoking Status: Current every day smoker alcohol intake: current Smoking Status: Current every day smoker tobacco type: cigarettes alcohol intake frequency: holidays/special occasions only Substance Use Type: marijuana Exam Narrative Exam Narrative: GENERAL: Well-developed patient, in mild distress. HEAD: Atraumatic. Normocephalic. EYES: Pupils equal round and reactive. Extraocular motions intact. No scleral icterus. No injection or drainage. ENT: Nose without bleeding, purulent drainage. Throat without erythema, tonsillar hypertrophy or exudate. Airway patent. NECK: Trachea midline. Non tender CARDIOVASCULAR: Regular rate and rhythm without murmurs, gallops, or rubs. RESPIRATORY: Clear to auscultation. Breath sounds equal bilaterally. No wheezes, rales, or rhonchi. Left mid anterior chest wall tenderness, no redness, crepitance vesicles or rash. No retractions. Speaks in full sentences. Moves air well. GASTROINTESTINAL: Abdomen soft, non-tender, nondistended. EXTREMITIES: No edema or joint tenderness. BACK: Nontender without deformity or crepitance. No flank tenderness. NEURO: AOx3. SKIN: No rash or erythema of visible areas Initial Vital Signs Initial Vital Signs: Vital Signs Temperature 98.9 F 04/02/24 09:43 Pulse Rate 107 H 04/02/24 09:43 Respiratory Rate 16 04/02/24 09:43 Blood Pressure 134/83 04/02/24 09:43 Pulse Oximetry 98 04/02/24 09:43 Oxygen Delivery Method Room Air 04/02/24 09:43 Course Orders Ordered: Discontinued Medications Sodium Chloride (Normal Saline 0.9%) 1,000 mls @ 150 mls/hr IV CONT ANDREI Last Infusion: 04/02/24 13:59 Dose: Infused Documented By: Admin: 04/02/24 09:51 Dose: 150 mls/hr Documented By: Morphine Sulfate (Morphine 4 Mg/Ml Inj) 4 mg IV NOW ONE Stop: 04/02/24 10:03 Last Admin: 04/02/24 10:06 Dose: 4 mg Documented By: Ondansetron HCl (Ondansetron 4 Mg/2 Ml Inj) 4 mg IV NOW ONE Stop: 04/02/24 10:03 Last Admin: 04/02/24 10:06 Dose: 4 mg Documented By: Vital Signs Vital signs: Vital Signs - 8 hr 04/02/24 13:59 Blood Pressure 132/77 MDM - Chest Pain Lab Data Attestation: I reviewed the patient's lab results. 04/02/24 09:41 04/02/24 09:41 Labs: Lab Results 04/02/24 04/02/24 04/02/24 Range/Units 09:41 10:34 12:41 WBC 7.6 (4.5-11.0) X10^3/uL RBC 6.13 H (4.5-5.9) X10^6/uL Hgb 18.7 H (13.5-17.5) g/dL Hct 53.5 H (41-53) % MCV 87.3 (80-100) fL MCH 30.4 (26-34) PG MCHC 34.9 (30-36) % RDW 14.8 (11.6-14.8) % Plt Count 290 (150-400) X10^3/uL Neut % (Auto) 67.1 (50-75) % Lymph % (Auto) 25.6 (25-40) % [place] % (Auto) 5.3 (3-14) % Eos % (Auto) 1.5 L (2-4) % Baso % (Auto) 0.5 (0-2) % Neut # (Auto) 5100 (6023-1761) /uL Lymph # (Auto) 2000 (0835-9551) /uL [place] # (Auto) 400 (0-900) /uL Eos # (Auto) 100 (0-450) /uL Baso # (Auto) 0 (0-100) /uL D-Dimer 279 (<500) ng/ml Sodium 139 (137-145) mmol/L Potassium 4.3 (3.4-5.1) mmol/L Chloride 106 (98-107) mmol/L Carbon Dioxide 26 (22-32) mmol/L BUN 7 L (9-20) mg/dL Creatinine 0.90 (0.66-1.25) mg/dL Estimated GFR > 60 (>60) mL/min BUN/Creatinine Ratio 7.8 (6-22) Glucose 94 (70-100) mg/dL Calcium 9.2 (8.4-10.2) mg/dL Total Bilirubin 0.5 (0.2-1.3) mg/dL AST 36 (17-59) IU/L ALT 24 (<50) IU/L Alkaline Phosphatase 58 (38-126) U/L Total Creatine Kinase 227 H (55-170) U/L Troponin I < 0.012 < 0.012 (0.01-0.034) ng/mL Total Protein 8.4 H (6.3-8.2) g/dL Albumin 4.9 (3.5-5.0) g/dL Globulin 3.5 (1.7-4.1) g/dL Albumin/Globulin Ratio 1.4 (1.0-2.8) Lipase 114 (23-300) U/L SARS-CoV-2 (PCR) Negative (Negative) Influenza A (RT-PCR) Flu a negative (NEGATIVE) Influenza B (RT-PCR) Flu b negative (NEGATIVE) RSV (PCR) Negative (Negative) Imaging Data Chest x-ray: Radiologist's Impression: Close Chest X-Ray (Signed) Kasie Vega - 04/02/[address] [address] XRay Report Signed Patient: Jarek Hernandez MR#: [id number] : 1990 Acct:[id number] Age/Sex: 33 / M Date of Service: 04/02/24 Loc: ED Accession Number: [id number] Procedure: XR chest 1V Ordering Provider: Edi Marr MD PROCEDURE: XR CHEST 1V INDICATIONS: chest pain TECHNIQUE: One view of the chest was acquired. COMPARISON: None. FINDINGS: Surgical changes and devices: None. Lungs and pleura: Lungs are clear. No pleural effusions or pneumothorax. Mediastinum: Mediastinal contours appear normal. Heart size is normal. Bones and chest wall: No suspicious bony lesions. Overlying soft tissues appear unremarkable. IMPRESSION: No acute pulmonary process. Dictated by: Kasie Vega M.D. on 04/02/2024 at 10:19 Approved by: Kasie Vega M.D. on 04/02/2024 at 10:23 ECG Data Attestation: I personally reviewed and interpreted this ECG as follows: Interpretation: Normal sinus rhythm with rate 85, upsloping ST segment elevation in lead V2 and V3, early Re pole like pattern, no obvious AMI changes. Normal OH, QRS, QTC intervals. Repeat EKG 04/02/2024 at 12:39 p.m., sinus bradycardia with rate of 55, same upsloping ST segment early repolarization like changes, again with normal OH and QRS and QTC intervals. [facility] Narrative Medical decision making narrative: 33-year-old male with history of PTSD, recent dry cough for 2 days, left anterior chest discomfort, seems reproducible on exam, history of NSAID allergies, screening EKG without obvious ischemic changes, heart rate upper 90s in the low 100s, not terribly anxious appearing after his morning medications, initial diaphoresis noted, resolved. Screening chest x-ray unremarkable. Labs pending including troponin, D-dimer added. COVID/flu swabs requested. Moving air well, no wheezing, speaking full sentences, normal oxygenation and respiratory rate. IV morphine/Zofran for pain control. Chest x-ray negative, see radiology report. EKG with upsloping early repolarization changes anterior septal leads. Initial troponin negative, we will recheck interval delta troponin. D-dimer negative. Looks more comfortable after IV morphine dose, history of NSAID allergies noted. COVID/flu swab negative, interval repeat troponin due within the hour. He looks much more comfortable. Repeat EKG no change, repeat troponin also negative. Continue taking his supply Tramadol as needed chest wall pain, recheck with PCP if not better 2d, return precautions discussed. Discharge Plan Departure Patient Disposition: Home Clinical Impression: Acute chest wall pain, Upper respiratory infection Activity Restrictions/Additional Instructions: History of PTSD, this morning after 2 days coughing had left anterior chest discomfort, chest x-ray unremarkable, EKG showed no definite heart attack changes, serial blood test negative for heart attack, D-dimer not suggestive of blood clot to the lung as causing chest discomfort. History of anti-inflammatory medication allergies, therefore no Toradol or aspirin were given, improved symptoms after IV morphine dose. Consider use of your tramadol for continued chest discomfort. Recheck with your regular doctor in the next couple of days if symptoms persist. Return to this/nearest emergency department for any change worsening symptoms or any concerns prior Prescriptions: No Action benzonatate 100 mg capsule 100 mg PO BID PRN (Reason: cough) Qty: 20 0RF dicyclomine 20 mg tablet 20 mg PO TID PRN (Reason: Stomach cramping) Qty: 30 5RF cyclobenzaprine 5 mg tablet 5 mg PO TID PRN (Reason: muscle spasm) Qty: 30 1RF diazepam 2 mg tablet See Rx Instructions .ROUTE .COMPLEX Qty: 60 0RF Dose Instruction: TAKE 1 TABLET (2 MG) BY MOUTH TWICE DAILY NEEDED FOR ANXIETY Rx Instructions: TAKE 1 TABLET (2 MG) BY MOUTH TWICE DAILY NEEDED FOR ANXIETY phenazopyridine [Pyridium] 200 mg tablet 200 mg PO TID PRN (Reason: Bladder irritation) Qty: 30 0RF ibuprofen 200 mg tablet 800 mg PO Q6H PRN (Reason: Pain) Referrals: Favian Garza DO [Primary Care Provider] - Stand Alone Forms: Patient Portal/API
[2024-04-02 09:59] LABS: Alanine Aminotransferase 24 IU/L (<50); Albumin 4.9 g/dL (3.5-5.0); Albumin Globulin Ratio 1.4 (1.0-2.8); Alkaline Phosphatase 58 U/L (38-126); Aspartate Aminotransferase 36 IU/L (17-59); BUN Creatinine Ratio 7.8 (6-22); Bilirubin Total 0.5 mg/dL (0.2-1.3); Blood Urea Nitrogen 7 mg/dL (9-20); Calcium 9.2 mg/dL (8.4-10.2); Carbon Dioxide 26 mmol/L (22-32); Chloride 106 mmol/L (98-107); Creatine Kinase 227 U/L (55-170); Estimated Glomerular Filt Rate > 60 mL/min (>60); Globulin 3.5 g/dL (1.7-4.1); Glucose 94 mg/dL (70-100); HEMOLYSIS 36 (0-50); Lipase 114 U/L (23-300); Potassium 4.3 mmol/L (3.4-5.1); Sodium 139 mmol/L (137-145); Total Protein 8.4 g/dL (6.3-8.2)
[2024-04-02] MEDS: ONDANSETRON 4 MG/2 ML INJ IV (10:06)
[2024-04-02] MEDS: MORPHINE 4 MG/ML INJ IV (10:06)
[2024-04-02 10:10] LABS: Troponin I < 0.012 ng/mL (0.01-0.034)
[2024-04-02 10:20] LABS: D Dimer 279 ng/ml (<500)
[2024-04-02 11:28] LABS: Influenza A - CEPHEID Flu A NEGATIVE (NEGATIVE); Influenza B - CEPHEID Flu B NEGATIVE (NEGATIVE); Respiratory Syncytial Virus Negative (Negative)
[2024-04-02 11:29] LABS: COVID-19 CEPHEID 4-PLEX PCR Negative (Negative)
[2024-04-02 13:15] LABS: Troponin I < 0.012 ng/mL (0.01-0.034)
== END 2024-04-02 14:01 | disposition home or self-care (01) ==
PROVIDERS: Emergency Provider Emergency Medicine; Family Provider Internal Medicine Hematology & Oncology; PCP Family Medicine
DX: R07.89 Other chest pain (principal); J06.9 Acute upper respiratory infection, unspecified; F17.210 Nicotine dependence, cigarettes, uncomplicated
CPT/HCPCS: 0241U; 36415; 71045; 80053; 82550; 83690; 84484; 85025; 85379; 93005; 96374; 96375; 99284; J2270; J2405

== ENCOUNTER → 2024-10-25 08:15 | Outpatient (CLI) | payer OTHER, SELFPAY ==
--- NOTE | 2024-10-25 | DI.CT.S_ITS ---
PROCEDURE: CT SINUS SCREEN WO CON INDICATIONS: Periapical abscess without sinus TECHNIQUE: Noncontrast 3.0 mm axial images acquired from the frontal sinuses to the mid-sella, with coronal and sagittal reformats. For radiation dose reduction, the following was used: automated exposure control, adjustment of mA and/or kV according to patient size. COMPARISON: None. FINDINGS: Image quality: Excellent. Maxillary Sinuses: There is a mucous retention cyst within the inferior right maxillary sinus. Moderate mucosal thickening can be seen within the left inferior maxillary sinus. The superior medial yarbrough of the maxillary sinuses are highly demineralized. Ethmoid Air Cells: There is moderate mucosal thickening within the ethmoid air cells. There is demineralization of several ethmoid air cell bony septations. Sphenoid Sinuses: No bony remodeling or destruction. Minimal mucosal thickening can be seen anteriorly. Frontal Sinuses: Moderate mucosal thickening can be seen within the inferior medial frontal sinuses. No definite bony changes are seen. Ostiomeatal Complexes: Ostiomeatal complexes are patent, yet they are highly narrowed by soft tissue, left worse than right. No Dixon cells. The ostiomeatal complexes are demineralized. Miscellaneous: Visualized intra-orbital contents are normal. No lynsey bullosa or paradoxical turbinate curvature. No nasal septal deviation. Poor dentition is noted. No definite maxillary periapical abscess is seen. IMPRESSION: Poor dentition seen, yet without a maxillary periapical abscess seen. Multifocal paranasal sinus disease can be seen. The ostiomeatal complexes are highly narrowed by soft tissue, left worse than right. Areas of bony demineralization are seen, which are consistent with chronic sinusitis. Dictated by: Gabo Jacques M.D. on 10/25/2024 at 10:12 Approved by: Gabo Jacques M.D. on 10/25/2024 at 10:16
== END ==
PROVIDERS: Family Provider Internal Medicine Hematology & Oncology; PCP Family Medicine; Referring Provider Family Medicine; Visit Provider Family Medicine
DX: K04.7 Periapical abscess without sinus (principal); J32.8 Other chronic sinusitis
CPT/HCPCS: 70486; Q9967